=== PATIENT | male | born 1970 | race Caucasian/White ===

== ENCOUNTER 2016-05-14 16:30 | Inpatient (IN) | payer SELFPAY ==
[~2016-05-14] VITALS: Ht 185.4 cm; Wt 162.4 kg
[~2016-05-14 16:30] MED LIST: Atorvastatin PO; FURO80TA72 PO; GABA-585 PO; HYDR12.53 PO; INSU100I13 SQ; INSU100I17 SQ; INSU100I27 SQ; LISI-338 PO; METF500T4 PO; NYST30PO9 TP
[2016-05-14] MEDS ORDERED: IV NORMAL SALINE 1000ML BAG 1,000 ML IV SCH ×2 (16:57→17:32)
--- NOTE | 2016-05-14 17:07 | ED.ADGEN ---
Past Medical History Past Medical History: Cancer, Diabetes-Type II, High Cholesterol, Hypertension Additional Past Medical Histor: Renal cancer 06/2012 - refused chemotherapy and radiation. Past Surgical History: Appendectomy, Cholecystectomy, Other Additional Past Surgical Histo: Left Nephrectomy Alcohol Use: None Drug Use: None Adult General Chief Complaint Chief Complaint: HYPERGLYCEMIA HPI HPI Patient is a 46 year old and, history of type 2 diabetes mellitus, hypertension , obesity, renal cell carcinoma was diagnosed in 2012 for which he did not receive treatment, who presents to the emergency department with complaint of feeling tired, lethargy, dry mouth, nauseous, experiencing diarrhea that began today, and of "high" blood sugars at home after running out of his insulin approximately 5 days ago. Patient states that he feels as he usually does when he is in DKA. He states he does not currently have a doctor, states that he attempted to go to the pharmacy to get insulin and was told that he had used "more than $1500 already", and he was unable to obtain insulin at that point. He does not have insurance. Patient denies any chest pain or shortness of breath , denies any focal weakness numbness or tingling, any vision changes. He states he feels weak all over, fatigue, nausea, has not had any vomiting, no fevers or chills, has had multiple episodes of loose brown stool that began this morning, no sick contacts or exposures. Denies any blood in stool. States he had frequency of urine today, no dysuria. Denies any injuries. No swelling of the extremities. Patient's Accu-Chek upon arrival to the emergency department registers as too high to be determined. Dry mucous membranes as stated, mild sinus tachycardia in the low 100s. Speech noted to be slightly slurred, patient states that dry mouth is contributing. Review of Systems Review of Systems Constitutional: Denies fever or chills. [] Generalized weakness and malaise. Eyes: Denies change in visual acuity. [] HENT: Denies nasal congestion or sore throat. [] Respiratory: Denies cough or shortness of breath. [] Cardiovascular: Denies chest pain or edema. [] GI: Abdominal cramping, nausea, no vomiting, positive for diarrhea, no bloody stools. : Denies dysuria. Frequency. Musculoskeletal: Denies back pain or joint pain. [] Integument: Denies rash. [] Neurologic: Denies headache, focal weakness or sensory changes. [] Endocrine: Denies polyuria or polydipsia. [] Lymphatic: Denies swollen glands. [] Psychiatric: Denies depression or anxiety. [] Current Medications Current Medications Current Medications Medications (Trade) Dose Ordered Sig/Mario Start Time Stop Time Status Last Admin Dose Admin Dextrose/Sodium Chloride 1,000 ml @ 250 mls/hr Q4H 05/14/16 17:32 05/14/16 18:24 DC Insulin Human Regular 150 unit/ Sodium Chloride 151.5 ml @ 0 mls/hr CONT PRN PRN 05/14/16 17:30 05/14/16 18:24 DC Potassium Chloride (KCl Premix 10meq) 100 ml @ 100 mls/hr PRN Q1HR PRN 05/14/16 17:30 05/14/16 18:24 DC Sodium Chloride 1,000 ml @ 250 mls/hr Q4H 05/14/16 17:32 05/14/16 18:24 DC Allergies Allergies Allergies Coded Allergies Type Severity Reaction Last Updated Verified Iodinated Contrast Media - IV Dye Allergy Intermediate 04/06/15 Yes meperidine HCl Allergy Intermediate 04/06/15 Yes Physical Exam Physical Exam Constitutional: Well developed, well nourished, dry mucous membranes, no acute distress, ill in appearance. HENT: Normocephalic, atraumatic, bilateral external ears normal, oropharynx moist, no oral exudates, nose normal. [] Eyes: PERRLA, EOMI, conjunctiva normal, no discharge. [] Neck: Normal range of motion, no tenderness, supple, no stridor. [] Cardiovascular:Heart rate regular rhythm, no murmur, S1, S2, no rubs or gallops. Mildly tachycardic. [] Lungs & Thorax: Bilateral breath sounds clear to auscultation, no wheezing, rhonchi, rales. No chest or crepitus or tenderness. [] Abdomen: Bowel sounds normal, soft, mild initial palpation diffusely, no rebound , rigidity, no guarding, no masses, no pulsatile masses. [] Skin: Warm, dry, no erythema, no rash. [] Back: No tenderness, no CVA tenderness. [] Extremities: No tenderness, no cyanosis, no clubbing, ROM intact, no edema. Negative Homans sign. Neurologic: Alert and oriented X 3, normal motor function, normal sensory function, patient is slightly slow to respond at times, with mildly slurred speech, no difficulty with finding words. Psychologic: Affect normal, judgement normal, mood normal. [] Current Patient Data Vital Signs Vital Signs Date Time Temp Pulse Resp B/P Pulse Ox O2 Delivery O2 Flow Rate FiO2 05/14/16 17:40 104 24 114/68 95 Room Air 05/14/16 16:32 97.8 97.8 Lab Values Laboratory Tests Test 05/14/16 16:52 05/14/16 17:00 Urine Color Yellow Urine Clarity Clear Urine pH 5.5 Urine Specific [place] >=1.030 Urine Protein Negativemg/dL (NEG-TRACE) Urine Glucose (UA) >=1000mg/dL (NEG) Urine Ketones (Stick) Tracemg/dL (NEG) Urine Blood Negative (NEG) Urine Nitrite Negative (NEG) Urine Bilirubin Negative (NEG) Urine Urobilinogen Dipstick 0.2mg/dL (0.2 mg/dL) Urine Leukocyte Esterase Negative (NEG) Urine RBC Rare/HPF (0-2) Urine WBC 1-4/HPF (0-4) Urine Squamous Epithelial Cells Occ/LPF Urine Bacteria 0/HPF (0-FEW) White Blood Count 10.8x10^3/uL (4.0-11.0) Red Blood Count 5.80x10^6/uL (4.30-5.70) H Hemoglobin 17.0g/dL (13.0-17.5) Hematocrit 50.0% (39.0-53.0) Mean Corpuscular Volume 86fL (79-100) Mean Corpuscular Hemoglobin 29pg (25-35) Mean Corpuscular Hemoglobin Concent 34g/dL (31-37) Red Cell Distribution Width 13.7% (11.5-14.5) Platelet Count 314x10^3/uL (140-400) Neutrophils (%) (Auto) 72% (31-73) Lymphocytes (%) (Auto) 19% (24-48) L Monocytes (%) (Auto) 7% (0-9) Eosinophils (%) (Auto) 1% (0-3) Basophils (%) (Auto) 1% (0-3) Neutrophils # (Auto) 7.7x10^3uL (1.8-7.7) Lymphocytes # (Auto) 2.1x10^3/uL (1.0-4.8) Monocytes # (Auto) 0.7x10^3/uL (0.0-1.1) Eosinophils # (Auto) 0.2x10^3/uL (0.0-0.7) Basophils # (Auto) 0.1x10^3/uL (0.0-0.2) Sodium Level 121mmol/L (136-145) L Potassium Level 4.5mmol/L (3.5-5.1) Chloride Level 83mmol/L (98-107) L Carbon Dioxide Level 25mmol/L (21-32) Anion Gap 13 (6-14) Blood Urea Nitrogen 20mg/dL (8-26) Creatinine 1.6mg/dL (0.7-1.3) H Estimated GFR (Cockcroft-Gault) 46.8 BUN/Creatinine Ratio 13 (6-20) Glucose Level 954mg/dL (70-99) *H Calcium Level 9.9mg/dL (8.5-10.1) Phosphorus Level 3.3mg/dL (2.6-4.7) Magnesium Level 2.0mg/dL (1.8-2.4) Total Bilirubin 0.6mg/dL (0.2-1.0) Aspartate Amino Transferase (AST) 48U/L (15-37) H Alanine Aminotransferase (ALT) 66U/L (16-63) H Alkaline Phosphatase 123U/L (46-116) H Total Protein 7.9g/dL (6.4-8.2) Albumin 3.3g/dL (3.4-5.0) L Albumin/Globulin Ratio 0.7 (1.0-1.7) L Laboratory Tests 05/14/16 17:00 Laboratory Tests 05/14/16 17:00 EKG EKG EC: Sinus tachycardia, heart rate 108 bpm, left axis deviation, QTC of 459, HI of 170, QRS of 80, Q waves noted in leads 3, with contour normality is noted in aVF, possible previous infarct, no ST depressions identified, patient with contour abnormalities noted in the anterior septal leads, abnormal ECG, does not meet STEMI criteria. As interpreted by me. Radiology/Procedures Radiology/Procedures [] [facility] [address] [place], [place] [id number] IMAGING REPORT Signed PATIENT: PATRICIO VEGA ACCOUNT: [id number] : 1970 LOCATION: [facility] AGE: 46 SEX: M EXAM STATUS: ADM IN ORD. PHYSICIAN: YANETH SPEAR DO REASON: PRATER/weakness/slurred speech/Hyperglcemia PROCEDURE: HEAD WO CONTRAST PROCEDURE CT head without intravenous contrast. HISTORY Headache and weakness. Slurred speech. TECHNIQUE Axial images are obtained of the head from the skull base through the vertex without IV contrast Exposure: One or more of the following individualized dose reduction techniques were utilized for this examination: 1. Automated exposure control. 2. Adjustment of the mA and/or kV according to patient size. 3. Use of iterative reconstruction technique. COMPARISON CT head October 28, 2001. FINDINGS The ventricles are appropriate in size, shape, and location for the patient's age.No obvious intracranial mass, mass-effect, midline shift, hemorrhage or obvious acute infarction is identified.Basilar cisterns are patent. Bone windows demonstrate no acute calvarial abnormality.The visualized paranasal sinuses appear clear. IMPRESSION No acute intracranial process. Please note that CT can be relatively insensitive to acute ischemic infarction for up to 24 hours after symptom onset. Electronically signed by: Vahe Mora MD (May 14, 2016 18:38:58) DICTATED and SIGNED BY: VAHE MORA MD DATE: 05/14/16 183 CC: YANETH SPEAR DO; NO PCP; DANIELLE BLACKWOOD MD ~ Acute abdominal series: 3 view: Suboptimal respiratory effort, but no infiltrates, effusions, pneumothorax or effusions noted. No soft tissue or bony abnormalities identified, normal cardiac lip. Patient with possibly of gas noted in the bowel, but no air-fluid levels or obvious evidence of obstruction or other abnormality. As interpreted by me. Course & Med Decision Making Course & Med Decision Making Pertinent Labs and Imaging studies reviewed. (See chart for details) Patient's blood glucose is 954, trace ketones in the urine, but no anion gap or evidence of acidosis on his laboratory studies. As stated, patient with very mild slurred speech, which patient states is consistent with previous episodes of DKA, CT of the head obtained, no acute findings identified, examination is otherwise unremarkable, I do not believe is indicative of a CVA, symptoms are consistent with his hyperglycemia. Patient taking by mouth fluids without issue , along with IV fluids. Due to patient's complaints, speech changes, and elevated glucose, will admit to the ICU for close monitoring, after discussion with Dr. Blackwood. Insulin drip initiated in the ED without issue, will continue to adjust per glucose stabilizing. Patient with IV fluids initiated per the DKA protocol. Patient is agreeable with plan for addition of the hospital for treatment. Address with patient that continued to occur as long as he is not adhering to an insulin regimen, discussed with patient and family at bedside again the importance of establishing insurance, primary care provider, and an insulin regimen to prevent long-term serious health effects from his uncontrolled diabetes. Patient voiced understanding. No vomiting or diarrhea in the emergency department, which treatment as stated. Bridge orders entered per discussion. Dragon Disclaimer Dragon Disclaimer This electronic medical record was generated, in whole or in part, using a voice recognition dictation system. Departure Impression: Primary Impression: Hyperglycemia Disposition: ADMITTED INPATIENT Admitting Physician: Danielle Blackwood Condition: IMPROVED YANETH SPEAR DO May 14, 2016 17:07
[2016-05-14 17:14] LABS: BILIRUBIN,URINE NEGATIVE (NEG); GLUCOSE,URINE >=1000 mg/dL (NEG); NITRITE,URINE NEGATIVE (NEG); PH,URINE 5.5; PROTEIN,URINE NEGATIVE (NEG-TRACE); UROBILINOGEN,URINE 0.2 mg/dL (0.2 mg/dL)
[2016-05-14 17:16] LABS: BASO # 0.1 x10^3/uL (0.0-0.2); BASO % 1 % (0-3); EOS % 1 % (0-3); LYMPH # 2.1 x10^3/uL (1.0-4.8); LYMPH % 19 % (24-48); MEAN CORPUSCULAR HEMOGLOBIN 29 pg (25-35); MEAN CORPUSCULAR HGB CONC 34 g/dL (31-37); MEAN CORPUSCULAR VOLUME 86 fL (79-100); MONO % 7 % (0-9); NEUT % 72 % (31-73); PLATELET COUNT 314 x10^3/uL (140-400); RED CELL DISTRIBUTION WIDTH 13.7 % (11.5-14.5); WHITE BLOOD COUNT 10.8 x10^3/uL (4.0-11.0)
[2016-05-14 17:21] LABS: BACTERIA,URINE 0 /HPF (0-FEW); RBC,URINE RARE /HPF (0-2); SQUAMOUS EPITHELIAL CELL,UR OCC /LPF
[2016-05-14] MEDS ORDERED: INSULIN REGULAR VIAL 150 UNIT in 0.9 % SODIUM CHLORIDE 150ML 150 ML IV PRN (17:30)
[2016-05-14] MEDS ORDERED: IV 1/2 NORMAL SALINE 1,000 ML IV SCH (17:30)
[2016-05-14] MEDS ORDERED: POTASSIUM CHLORIDE 10MEQ 100 ML IV PRN ×3 (17:30)
[2016-05-14 17:31] LABS: CALCIUM 9.9 mg/dL (8.5-10.1); CREATININE 1.6 mg/dL (0.7-1.3); GFR 46.8; POTASSIUM 4.5 mmol/L (3.5-5.1)
[2016-05-14] MEDS ORDERED: IV DEXTROSE 5 %-0.45 % NACL 1,000 ML IV SCH (17:32)
[2016-05-14 17:33] LABS: ALBUMIN 3.3 g/dL (3.4-5.0); ALBUMIN/GLOBULIN RATIO 0.7 (1.0-1.7); PHOSPHORUS 3.3 mg/dL (2.6-4.7); TOTAL BILIRUBIN 0.6 mg/dL (0.2-1.0); TOTAL PROTEIN 7.9 g/dL (6.4-8.2)
[2016-05-14] MEDS ORDERED: IV NORMAL SALINE 1000ML BAG 1,000 ML IV ONE (18:00)
[2016-05-14] MEDS ORDERED: INSULIN,REGULAR 150 UNIT DRIP 150 ML IV ONE (18:00)
[2016-05-14] MEDS ORDERED: ACETAMINOPHEN 325 MG TABLET. PO PRN (18:30)
[2016-05-14] MEDS ORDERED: ONDANSETRON PF 4 MG/2 ML VIAL. IV PRN ×2 (18:30→18:59)
--- NOTE | 2016-05-14 18:40 | RAD ---
PROCEDURE CT head without intravenous contrast. HISTORY Headache and weakness. Slurred speech. TECHNIQUE Axial images are obtained of the head from the skull base through the vertex without IV contrast Exposure: One or more of the following individualized dose reduction techniques were utilized for this examination: 1. Automated exposure control. 2. Adjustment of the mA and/or kV according to patient size. 3. Use of iterative reconstruction technique. COMPARISON CT head October 28, 2001. FINDINGS The ventricles are appropriate in size, shape, and location for the patient's age.No obvious intracranial mass, mass-effect, midline shift, hemorrhage or obvious acute infarction is identified.Basilar cisterns are patent. Bone windows demonstrate no acute calvarial abnormality.The visualized paranasal sinuses appear clear. IMPRESSION No acute intracranial process. Please note that CT can be relatively insensitive to acute ischemic infarction for up to 24 hours after symptom onset. Electronically signed by: Vahe Jimenes MD (May 14, 2016 18:38:58)
[2016-05-14] MEDS: IV NORMAL SALINE 1000ML BAG 1,000 ML IV SCH (19:00)
[2016-05-14 19:05] VITALS: BP 118/72
[2016-05-14 19:45] LABS: BARBITURATES NEG (NEG); BENZODIAZEPINES NEG (NEG); CANNABINOIDS NEG (NEG); COCAINE NEG (NEG); METHADONE NEG (NEG); OPIATES NEG (NEG); PHENCYCLIDINE NEG (NEG)
[2016-05-14 19:48] LABS: ETHANOL, URINE NEG (NEG)
--- NOTE | 2016-05-14 19:52 | PDOC1 ---
History and Physical Date of Admission Date of Admission DATE: 05/14/16 TIME: 19:43 Identification/Chief Complaint Chief Complaint slurred speech Source Source: Caregiver, Chart review, Patient History of Present Illness History of Present Illness 46 y.o obese male who was diagnosed DM type 2 just 2-3 yrs ago, but unfortunately has had multiple admits for HONK, He is admitted for the same with BS almost 1,000 at ER. HIS hgba1c is 17 he claims last Jan 2016 - his last admission here. HE practically HAS NO sensation in his feet he claims. Blurry vision too. He has no insurance so has not been taking insulin for the past weeks or maybe mos, HE is supposed to be on levemir 100 BID and novolog 100 TID with meals. Never was introduced to insulin pump or has seen tractor engine assembler bec of financial constraints UA shwos glucosuria and ketones but no infection Bicarb is 23 and gap is only 13 ALthough his speech is slurred, he is actually able to relay to me his meds including lisinopril, metformin, his insulin dose. He is not usually slurred as per hygiene assistant, His CT ehad is normal HONK can very much well be a stroke mimic, given THIS VERY HIGH BS LEVELS DID heavy counselling on DM and controlling it, including discussing coma in severe cases Past Medical History Cardiovascular: HTN Pulmonary: Other CENTRAL NERVOUS SYSTEM: Periperal neuropathy GI: No pertinent hx Heme/Onc: No pertinent hx, Cancer Hepatobiliary: No pertinent hx Psych: No pertinent hx Renal/: Renal Ca. Endocrine: Diabetes Past Surgical History Past Surgical History: Cholecystectomy, Hernia Repair, Tonsillectomy, Other Family History Family History: No Significant Social History Smoke: No ALCOHOL: none Drugs: None Current Problem List Problem List Problems Medical Problems: (1) Hyperglycemia Status: Acute Problems: Current Medications Current Medications Current Medications Sodium Chloride 1,000 ml @ 1,000 mls/hr Q1H IV Last administered on 05/14/16t 17:07; Start 05/14/16 at 16:57; Stop 05/14/16 at 17:56; Status DC Sodium Chloride 1,000 ml @ 500 mls/hr Q2H IV ; Start 05/14/16 at 17:30; Stop at 18:24; Status DC Sodium Chloride 1,000 ml @ 250 mls/hr Q4H IV ; Start 05/14/16 at 17:32; Stop at 18:24; Status DC Dextrose/Sodium Chloride 1,000 ml @ 250 mls/hr Q4H IV ; Start 05/14/16 at 17:32 ; Stop 05/14/16 at 18:24; Status DC Insulin Human Regular 150 unit/ Sodium Chloride 151.5 ml @ 0 mls/hr CONT PRN PRN IV PER PROTOCOL; Start 05/14/16 at 17:30; Stop 05/14/16 at 18:24; Status DC Potassium Chloride 100 ml @ 100 mls/hr PRN Q1HR PRN IV SEE COMMENTS; Start at 17:30; Stop 05/14/16 at 18:24; Status DC Potassium Chloride 100 ml @ 100 mls/hr PRN Q1HR PRN IV SEE COMMENTS; Start at 17:30; Stop 05/14/16 at 18:24; Status DC Potassium Chloride 100 ml @ 100 mls/hr PRN Q1HR PRN IV SEE COMMENTS; Start at 17:30; Stop 05/14/16 at 18:24; Status DC Sodium Chloride 1,000 ml @ 1,000 mls/hr 1X ONCE IV Last administered on t 18:32; Start 05/14/16 at 18:00; Stop 05/14/16 at 18:59; Status DC Insulin Human Regular (Novolin R Iv Drip) 150 ml @ 0 mls/hr 1X ONCE IV Last administered on 05/14/16t 18:08; Start 05/14/16 at 18:00; Stop 05/14/16 at 18:01 ; Status DC Ondansetron HCl (Zofran) 4 mg PRN Q8HRS PRN IV NAUSEA/VOMITING; Start 05/14/16 at 18:30; Stop 05/14/16 at 19:01; Status DC Acetaminophen (Tylenol) 650 mg PRN Q4HRS PRN PO FEVER; Start 05/14/16 at 18:30 ; Stop 05/15/16 at 18:29 Ondansetron HCl 4 mg 4 mg PRN Q6HRS PRN IV NAUSEA/VOMITING; Start 05/14/16 at 18:59 Sodium Chloride (Iv Sodium Chloride 0.9% 1000ml Bag) 1,000 ml @ 150 mls/hr Q6H40M IV ; Start 05/14/16 at 19:00 Gabapentin (Neurontin) 800 mg TID PO ; Start 05/14/16 at 21:00 Nystatin (Nystop) 1 martha BID TP ; Start 05/14/16 at 21:00 Atorvastatin Calcium (Lipitor) 20 mg QHS PO ; Start 05/14/16 at 21:00 Gabapentin (Neurontin) 200 mg TID PO ; Start 05/14/16 at 21:00 Active Scripts Active Levemir Flextouch (Insulin Detemir) 100 Unit/1 Ml Insuln.pen 120 Units SQ BID 30 Days Novolog Flexpen (Insulin Aspart) 100 Unit/1 Ml Insuln.pen 60 Units SQ TIDAC 30 Days Reported Lisinopril 5 Mg Tablet 1 Tab PO DAILY Lasix (Furosemide) 80 Mg Tablet 1 Tab PO DAILY [Atorvastatin] 25 Mg PO DAILY Gabapentin 100 Mg Capsule 1,000 Mg PO TID Metformin Hcl 500 Mg Tablet 2 Tab PO HS Metformin Hcl 500 Mg Tablet 2 Tab PO DAILY08 Nystatin 15 Gm Powder 1 Martha TP BID Allergies Allergies: Coded Allergies: Iodinated Contrast Media - IV Dye (Verified Allergy, Intermediate, 04/06/15 ) meperidine HCl (Verified Allergy, Intermediate, 04/06/15) ROS Review of System slurred speech,weak, Physical Exam General: Oriented X3, Cooperative, Other (slurred speech) HEENT: Atraumatic, PERRLA Lungs: Clear to auscultation, Normal air movement Heart: S1S2, RRR, no thrills, no rubs, other (sinus tachy) Abdomen: Normal bowel sounds, Soft, No tenderness, No hepatosplenomegaly, No masses Male Genitals Exam: normal genitalia, normal prostate Rectal Exam: not examined, mass PELVIC: Nml ext genitalia, Nml ext vulva Extremities: No clubbing, No cyanosis, No edema, Normal pulses, No tenderness/ swelling Skin: No rashes, No breakdown, No significant lesion Neuro: Other (no FNDs, no facial assympettry; MMT 5.5) Vitals Vitals Vital Signs Date Time Temp Pulse Resp B/P Pulse Ox O2 Delivery O2 Flow Rate FiO2 05/14/16 18:33 94 20 161/96 98 Room Air 05/14/16 16:32 97.8 97.8 Labs Labs Laboratory Tests Test 05/14/16 16:52 05/14/16 17:00 Urine Color Yellow Urine Clarity Clear Urine pH 5.5 Urine Specific [place] >=1.030 Urine Protein Negativemg/dL (NEG-TRACE) Urine Glucose (UA) >=1000mg/dL (NEG) Urine Ketones (Stick) Tracemg/dL (NEG) Urine Blood Negative (NEG) Urine Nitrite Negative (NEG) Urine Bilirubin Negative (NEG) Urine Urobilinogen Dipstick 0.2mg/dL (0.2 mg/dL) Urine Leukocyte Esterase Negative (NEG) Urine RBC Rare/HPF (0-2) Urine WBC 1-4/HPF (0-4) Urine Squamous Epithelial Cells Occ/LPF Urine Bacteria 0/HPF (0-FEW) White Blood Count 10.8x10^3/uL (4.0-11.0) Red Blood Count 5.80x10^6/uL (4.30-5.70) Hemoglobin 17.0g/dL (13.0-17.5) Hematocrit 50.0% (39.0-53.0) Mean Corpuscular Volume 86fL (79-100) Mean Corpuscular Hemoglobin 29pg (25-35) Mean Corpuscular Hemoglobin Concent 34g/dL (31-37) Red Cell Distribution Width 13.7% (11.5-14.5) Platelet Count 314x10^3/uL (140-400) Neutrophils (%) (Auto) 72% (31-73) Lymphocytes (%) (Auto) 19% (24-48) Monocytes (%) (Auto) 7% (0-9) Eosinophils (%) (Auto) 1% (0-3) Basophils (%) (Auto) 1% (0-3) Neutrophils # (Auto) 7.7x10^3uL (1.8-7.7) Lymphocytes # (Auto) 2.1x10^3/uL (1.0-4.8) Monocytes # (Auto) 0.7x10^3/uL (0.0-1.1) Eosinophils # (Auto) 0.2x10^3/uL (0.0-0.7) Basophils # (Auto) 0.1x10^3/uL (0.0-0.2) Sodium Level 121mmol/L (136-145) Potassium Level 4.5mmol/L (3.5-5.1) Chloride Level 83mmol/L (98-107) Carbon Dioxide Level 25mmol/L (21-32) Anion Gap 13 (6-14) Blood Urea Nitrogen 20mg/dL (8-26) Creatinine 1.6mg/dL (0.7-1.3) Estimated GFR (Cockcroft-Gault) 46.8 BUN/Creatinine Ratio 13 (6-20) Glucose Level 954mg/dL (70-99) Calcium Level 9.9mg/dL (8.5-10.1) Phosphorus Level 3.3mg/dL (2.6-4.7) Magnesium Level 2.0mg/dL (1.8-2.4) Total Bilirubin 0.6mg/dL (0.2-1.0) Aspartate Amino Transf (AST/SGOT) 48U/L (15-37) Alanine Aminotransferase (ALT/SGPT) 66U/L (16-63) Alkaline Phosphatase 123U/L (46-116) Total Protein 7.9g/dL (6.4-8.2) Albumin 3.3g/dL (3.4-5.0) Albumin/Globulin Ratio 0.7 (1.0-1.7) Laboratory Tests Test 05/14/16 16:52 05/14/16 17:00 Urine Color Yellow Urine Clarity Clear Urine pH 5.5 Urine Specific [place] >=1.030 Urine Protein Negativemg/dL (NEG-TRACE) Urine Glucose (UA) >=1000mg/dL (NEG) Urine Ketones (Stick) Tracemg/dL (NEG) Urine Blood Negative (NEG) Urine Nitrite Negative (NEG) Urine Bilirubin Negative (NEG) Urine Urobilinogen Dipstick 0.2mg/dL (0.2 mg/dL) Urine Leukocyte Esterase Negative (NEG) Urine RBC Rare/HPF (0-2) Urine WBC 1-4/HPF (0-4) Urine Squamous Epithelial Cells Occ/LPF Urine Bacteria 0/HPF (0-FEW) White Blood Count 10.8x10^3/uL (4.0-11.0) Red Blood Count 5.80x10^6/uL (4.30-5.70) Hemoglobin 17.0g/dL (13.0-17.5) Hematocrit 50.0% (39.0-53.0) Mean Corpuscular Volume 86fL (79-100) Mean Corpuscular Hemoglobin 29pg (25-35) Mean Corpuscular Hemoglobin Concent 34g/dL (31-37) Red Cell Distribution Width 13.7% (11.5-14.5) Platelet Count 314x10^3/uL (140-400) Neutrophils (%) (Auto) 72% (31-73) Lymphocytes (%) (Auto) 19% (24-48) Monocytes (%) (Auto) 7% (0-9) Eosinophils (%) (Auto) 1% (0-3) Basophils (%) (Auto) 1% (0-3) Neutrophils # (Auto) 7.7x10^3uL (1.8-7.7) Lymphocytes # (Auto) 2.1x10^3/uL (1.0-4.8) Monocytes # (Auto) 0.7x10^3/uL (0.0-1.1) Eosinophils # (Auto) 0.2x10^3/uL (0.0-0.7) Basophils # (Auto) 0.1x10^3/uL (0.0-0.2) Sodium Level 121mmol/L (136-145) Potassium Level 4.5mmol/L (3.5-5.1) Chloride Level 83mmol/L (98-107) Carbon Dioxide Level 25mmol/L (21-32) Anion Gap 13 (6-14) Blood Urea Nitrogen 20mg/dL (8-26) Creatinine 1.6mg/dL (0.7-1.3) Estimated GFR (Cockcroft-Gault) 46.8 BUN/Creatinine Ratio 13 (6-20) Glucose Level 954mg/dL (70-99) Calcium Level 9.9mg/dL (8.5-10.1) Phosphorus Level 3.3mg/dL (2.6-4.7) Magnesium Level 2.0mg/dL (1.8-2.4) Total Bilirubin 0.6mg/dL (0.2-1.0) Aspartate Amino Transf (AST/SGOT) 48U/L (15-37) Alanine Aminotransferase (ALT/SGPT) 66U/L (16-63) Alkaline Phosphatase 123U/L (46-116) Total Protein 7.9g/dL (6.4-8.2) Albumin 3.3g/dL (3.4-5.0) Albumin/Globulin Ratio 0.7 (1.0-1.7) VTE Prophylaxis Ordered VTE Prophylaxis Devices: Yes VTE Pharmacological Prophylaxi: Yes Assessment/Plan Assessment/Plan 1. HONK 2. Slurred speech in the background of HONK (can be a stroke mimic) 3. Mild Gap, no acidosis 4. Glucosuria and ketonuria 5. Obesity with mild PCM 6. PSeudohyponatremia 7. HTN on damian inhib 8. MELINDA 9.Hypochloremia 10. Elevated Alk phosp 11. DM 2 with end organ damage mainly neuropathy both feet PLAN: INSulin gtt ICU admit given severity of HONK Start IVF 150cc.hr BMP again alex AM ADA diet, is ok Hold damian inhib and metformin given creatinine Needs podiatry for monofilament testing Recheck hemoglobin a1c Also needs ophtha ideally DM education CC 31mins Seen at ER Dw pt and hygiene assistant and ER TESSIE Kaur MD May 14, 2016 19:52
[2016-05-14 20:00] VITALS: BP 117/73
[2016-05-14 20:28] LABS: CALCIUM 9.3 mg/dL (8.5-10.1); CREATININE 1.3 mg/dL (0.7-1.3); GFR 59.4; POTASSIUM 3.4 mmol/L (3.5-5.1)
[2016-05-14 21:00] VITALS: BP 118/77
[2016-05-14] MEDS: GABAPENTIN 100 MG CAPSULE. PO SCH (21:07)
[2016-05-14] MEDS: ATORVASTATIN CALCIUM 20 MG TABLET PO SCH (21:07)
[2016-05-14] MEDS: GABAPENTIN 400 MG CAPSULE. PO SCH (21:07)
[2016-05-14] MEDS: NYSTATIN TOPICAL POWDER 15GM BOTTLE. TP SCH (21:07)
[2016-05-14 22:00] VITALS: BP 115/59
[2016-05-14 23:00] VITALS: BP 108/51
[2016-05-15] VITALS (18 sets, daily range): BP systolic 93–134; BP diastolic 42–86
[2016-05-15] MEDS ORDERED: INSULIN REGULAR VIAL 150 UNIT in 0.9 % SODIUM CHLORIDE 150ML 150 ML IV PRN (00:45)
[2016-05-15] MEDS: IV NORMAL SALINE 1000ML BAG 1,000 ML IV SCH ×3 (01:40→15:00)
[2016-05-15 05:07] LABS: BASO # 0.2 x10^3/uL (0.0-0.2); BASO % 3 % (0-3); EOS % 5 % (0-3); HEMATOCRIT 43.7 % (39.0-53.0); HEMOGLOBIN 15.1 g/dL (13.0-17.5); LYMPH # 2.6 x10^3/uL (1.0-4.8); LYMPH % 37 % (24-48); MEAN CORPUSCULAR HEMOGLOBIN 29 pg (25-35); MEAN CORPUSCULAR HGB CONC 34 g/dL (31-37); MEAN CORPUSCULAR VOLUME 83 fL (79-100); MONO % 9 % (0-9); NEUT % 47 % (31-73); PLATELET COUNT 243 x10^3/uL (140-400); RED BLOOD COUNT 5.24 x10^6/uL (4.30-5.70); RED CELL DISTRIBUTION WIDTH 13.8 % (11.5-14.5)
[2016-05-15 05:21] LABS: CALCIUM 9.3 mg/dL (8.5-10.1); CREATININE 0.9 mg/dL (0.7-1.3); GFR 90.8
[2016-05-15 05:32] LABS: POTASSIUM 2.8 mmol/L (3.5-5.1)
--- NOTE | 2016-05-15 06:17 | EKG ---
[facility] [address] [place] [address] Test Date: 2016-05-14 Test Time: 17:06:09 Pat Name: PATRICIO VEGA Department: Room: 270 1 Gender: M [employer]: AMANDO : 1970 Requested By: YANETH SPEAR Order Number: [id number] Reading MD: Erica Lares Measurements Intervals [place] Rate: 108 P: 18 OR: 170 QRS: -11 QRSD: 80 T: 28 QT: 340 QTc: 459 Interpretive Statements SINUS TACHYCARDIA LEFTWARD AXIS QRS(T) CONTOUR ABNORMALITY CONSIDER ANTEROSEPTAL MYOCARDIAL DAMAGE PROBABLY OLD ABNORMAL ECG Electronically Signed On 05-15-2016 19:50:13 CDT by Erica Lares
[2016-05-15] MEDS ORDERED: POTASSIUM CHLORIDE 20 MEQ TABLET.ER. PO ONE (06:30)
--- NOTE | 2016-05-15 07:29 | RAD ---
Acute abdomen series with chest, 05/14/2016: History: Cough, abdominal pain There is a paucity of bowel gas in the abdomen. No dilated bowel loops are seen. No free air is evident in the abdomen. There are surgical clips in the abdomen and upper pelvis. No abnormal abdominal calcifications are delineated. The heart size is normal. No pulmonary infiltrates are seen. There is no evidence of pleural fluid. IMPRESSION: No acute abdominal abnormality is detected.
[2016-05-15] MEDS: NYSTATIN TOPICAL POWDER 15GM BOTTLE. TP SCH ×2 (08:19→20:55)
[2016-05-15] MEDS: GABAPENTIN 100 MG CAPSULE. PO SCH ×3 (08:19→20:54)
[2016-05-15] MEDS: GABAPENTIN 400 MG CAPSULE. PO SCH ×3 (08:19→20:54)
[2016-05-15] MEDS: INSULIN DETEMIR 300 UNITS/3 ML INSULN.PEN. SQ SCH ×2 (10:34→21:01)
--- NOTE | 2016-05-15 10:45 | PDOC ---
PROGRESS NOTES Chief Complaint Chief Complaint DKA ASSESSMENT AND PLAN: 1. DKA: resolved. switch insulin gtt to long- and short-acting insulin regimen 2. DM2.: by own account, poorly controlled at home. unemployed, can't afford insulin pens. 3. Dysarthria: states happens when BG high 4. Diabetic peripheral neuropathy: currently can't afford meds 5. Renal protection: on lisinopril 6. Prophylaxis: lovenox, H2B 7. Dispo: transfer to floor Vitals Vitals Vital Signs Date Time Temp Pulse Resp B/P Pulse Ox O2 Delivery O2 Flow Rate FiO2 05/15/16 10:00 81 17 122/71 97 Room Air 05/15/16 08:00 97.5 97.5 Physical Exam General: Alert, Oriented X3, Cooperative Heart: Regular rate Lungs: Clear Abdomen: Normal bowel sounds, Soft, No tenderness Extremities: No clubbing, No edema Skin: No rashes Labs LABS Laboratory Tests Test 05/14/16 16:50 05/14/16 16:52 05/14/16 17:00 05/14/16 20:05 Urine Opiates Screen Neg (NEG) Urine Methadone Screen Neg (NEG) Urine Barbiturates Neg (NEG) Urine Phencyclidine Screen Neg (NEG) Urine Amphetamine/Methamphetamine Neg (NEG) Urine Benzodiazepines Screen Neg (NEG) Urine Cocaine Screen Neg (NEG) Urine Cannabinoids Screen Neg (NEG) Urine Ethyl Alcohol Neg (NEG) Urine Color Yellow Urine Clarity Clear Urine pH 5.5 Urine Specific Hindman >=1.030 Urine Protein Negativemg/dL (NEG-TRACE) Urine Glucose (UA) >=1000mg/dL (NEG) Urine Ketones (Stick) Tracemg/dL (NEG) Urine Blood Negative (NEG) Urine Nitrite Negative (NEG) Urine Bilirubin Negative (NEG) Urine Urobilinogen Dipstick 0.2mg/dL (0.2 mg/dL) Urine Leukocyte Esterase Negative (NEG) Urine RBC Rare/HPF (0-2) Urine WBC 1-4/HPF (0-4) Urine Squamous Epithelial Cells Occ/LPF Urine Bacteria 0/HPF (0-FEW) White Blood Count 10.8x10^3/uL (4.0-11.0) Red Blood Count 5.80x10^6/uL (4.30-5.70) Hemoglobin 17.0g/dL (13.0-17.5) Hematocrit 50.0% (39.0-53.0) Mean Corpuscular Volume 86fL (79-100) Mean Corpuscular Hemoglobin 29pg (25-35) Mean Corpuscular Hemoglobin Concent 34g/dL (31-37) Red Cell Distribution Width 13.7% (11.5-14.5) Platelet Count 314x10^3/uL (140-400) Neutrophils (%) (Auto) 72% (31-73) Lymphocytes (%) (Auto) 19% (24-48) Monocytes (%) (Auto) 7% (0-9) Eosinophils (%) (Auto) 1% (0-3) Basophils (%) (Auto) 1% (0-3) Neutrophils # (Auto) 7.7x10^3uL (1.8-7.7) Lymphocytes # (Auto) 2.1x10^3/uL (1.0-4.8) Monocytes # (Auto) 0.7x10^3/uL (0.0-1.1) Eosinophils # (Auto) 0.2x10^3/uL (0.0-0.7) Basophils # (Auto) 0.1x10^3/uL (0.0-0.2) Sodium Level 121mmol/L (136-145) 133mmol/L (136-145) Potassium Level 4.5mmol/L (3.5-5.1) 3.4mmol/L (3.5-5.1) Chloride Level 83mmol/L (98-107) 96mmol/L (98-107) Carbon Dioxide Level 25mmol/L (21-32) 27mmol/L (21-32) Anion Gap 13 (6-14) 10 (6-14) Blood Urea Nitrogen 20mg/dL (8-26) 18mg/dL (8-26) Creatinine 1.6mg/dL (0.7-1.3) 1.3mg/dL (0.7-1.3) Estimated GFR (Cockcroft-Gault) 46.8 59.4 BUN/Creatinine Ratio 13 (6-20) Glucose Level 954mg/dL (70-99) 567mg/dL (70-99) Calcium Level 9.9mg/dL (8.5-10.1) 9.3mg/dL (8.5-10.1) Phosphorus Level 3.3mg/dL (2.6-4.7) Magnesium Level 2.0mg/dL (1.8-2.4) Total Bilirubin 0.6mg/dL (0.2-1.0) Aspartate Amino Transf (AST/SGOT) 48U/L (15-37) Alanine Aminotransferase (ALT/SGPT) 66U/L (16-63) Alkaline Phosphatase 123U/L (46-116) Total Protein 7.9g/dL (6.4-8.2) Albumin 3.3g/dL (3.4-5.0) Albumin/Globulin Ratio 0.7 (1.0-1.7) Test 05/14/16 21:33 05/14/16 22:34 05/14/16 23:36 05/15/16 00:41 Glucose (Fingerstick) 355mg/dL (70-99) 311mg/dL (70-99) 262mg/dL (70-99) 268mg/dL (70-99) Test 05/15/16 01:37 05/15/16 03:04 05/15/16 03:59 05/15/16 04:10 Glucose (Fingerstick) 236mg/dL (70-99) 219mg/dL (70-99) 198mg/dL (70-99) White Blood Count 7.0x10^3/uL (4.0-11.0) Red Blood Count 5.24x10^6/uL (4.30-5.70) Hemoglobin 15.1g/dL (13.0-17.5) Hematocrit 43.7% (39.0-53.0) Mean Corpuscular Volume 83fL (79-100) Mean Corpuscular Hemoglobin 29pg (25-35) Mean Corpuscular Hemoglobin Concent 34g/dL (31-37) Red Cell Distribution Width 13.8% (11.5-14.5) Platelet Count 243x10^3/uL (140-400) Neutrophils (%) (Auto) 47% (31-73) Lymphocytes (%) (Auto) 37% (24-48) Monocytes (%) (Auto) 9% (0-9) Eosinophils (%) (Auto) 5% (0-3) Basophils (%) (Auto) 3% (0-3) Neutrophils # (Auto) 3.3x10^3uL (1.8-7.7) Lymphocytes # (Auto) 2.6x10^3/uL (1.0-4.8) Monocytes # (Auto) 0.6x10^3/uL (0.0-1.1) Eosinophils # (Auto) 0.3x10^3/uL (0.0-0.7) Basophils # (Auto) 0.2x10^3/uL (0.0-0.2) Sodium Level 138mmol/L (136-145) Potassium Level 2.8mmol/L (3.5-5.1) Chloride Level 102mmol/L (98-107) Carbon Dioxide Level 26mmol/L (21-32) Anion Gap 10 (6-14) Blood Urea Nitrogen 15mg/dL (8-26) Creatinine 0.9mg/dL (0.7-1.3) Estimated GFR (Cockcroft-Gault) 90.8 Glucose Level 197mg/dL (70-99) Calcium Level 9.3mg/dL (8.5-10.1) Test 05/15/16 05:15 05/15/16 06:18 05/15/16 07:26 05/15/16 08:27 Glucose (Fingerstick) 171mg/dL (70-99) 174mg/dL (70-99) 137mg/dL (70-99) 149mg/dL (70-99) Test 05/15/16 09:27 Glucose (Fingerstick) 230mg/dL (70-99) Review of Systems Review of Systems feels ok, no focal pain KANDIS MEYERS MD May 15, 2016 10:45
[2016-05-15] MEDS: DO NOT USE 40 MG/0.4 ML DISP.SYRIN SQ SCH ×2 (10:57→23:01)
[2016-05-15] MEDS: METFORMIN 500 MG TABLET. PO SCH ×2 (10:57→17:44)
[2016-05-15] MEDS: LISINOPRIL 5 MG TABLET. PO SCH (10:57)
[2016-05-15] MEDS: FUROSEMIDE 80 MG TABLET PO SCH (10:57)
[2016-05-15] MEDS: INSULIN ASPART 300 UNITS/3 ML INSULN.PEN SQ SCH ×2 (11:01→18:04)
[2016-05-15] MEDS ORDERED: INSULIN ASPART 300 UNITS/3 ML INSULN.PEN SQ SCH (11:30)
[2016-05-15] MEDS: ATORVASTATIN CALCIUM 20 MG TABLET PO SCH (20:55)
[2016-05-15] MEDS ORDERED: FAMOTIDINE 20 MG TABLET. PO SCH (21:00)
[2016-05-15] MEDS ORDERED: INSULIN DETEMIR 300 UNITS/3 ML INSULN.PEN. SQ SCH (21:00)
[2016-05-16 03:01] VITALS: BP 90/51
--- NOTE | 2016-05-16 04:53 | ACF ---
Admission Forms Criteria GENERAL ADMISSION CRITERIA (Place 'X' for any and all applicable criteria): Admission is indicated for ANY ONE of the following: [ ]I. Hemodynamic instability as indicated by ANY ONE of the following(1)(2) (3)(4)(5): [ ]a) Vital sign abnormality not readily corrected by appropriate treatment within 12 to 24 hours indicated by ANY ONE of the following: [ ]i) Hypotension [ ]ii) Symptomatic Tachycardia unresponsive to treatment (eg , analgesia, fluids, sedation as indicated) [ ]iii) Orthostatic vital sign changes unresponsive to treatment (eg, fluids) [ ]b) Vital sign abnormality that is severe indicated by ANY ONE of the following: [ ]i) Inadequate perfusion indicated by ANY ONE of the following: [ ]1) Lactic acidosis (greater than 2 mmol/L) [ ]2) New abnormal capillary refill (greater than 3 seconds) [ ]3) Other metabolic acidosis (arterial pH less than 7.35) not otherwise explained [ ]4) Reduced urine output [ ]5) Altered mental status [ ]6) Myocardial Ischemia [ ]v) Mean arterial pressure[A] less than 60 mm Hg [ ]vi) Mean arterial pressure[A] less than 70 mm Hg after 30 minutes of appropriate treatment (eg, fluid resuscitation) [ ]vii) IV inotropic or vasopressor medication required to maintain adequate blood pressure or perfusion [ ]viii) Sustained heart rate greater than 120 beats per minute in adult or child 6 years or older[B]] [ ]II. Hypertension requiring inpatient treatment as indicated by ANY ONE of the following(6)(7)(8): [ ]a) SBP greater than 220 mm Hg or DBP greater than 120 mm Hg despite treatment [ ]b) SBP greater than 140 mm Hg or DBP greater than 100 mm Hg with evidence of acute end organ damage as indicated by ANY ONE of the following: [ ]i) Encephalopathy [ ]ii) Acute renal failure as indicated by new onset of ANY ONE of the following(9)(10)(11)(12)(13): [ ]1) A 3-fold rise in serum creatinine from baseline [ ]2) Serum creatinine greater than 4 mg/dL ( 354 micromoles/L) with acute rise greater than 0.5 mg/dL (44.2 micromoles/L) [ ]3) Reduction of more than 75% in estimated glomerular filtration rate from baseline [ ]4) Estimated glomerular filtration rate less than 35 mL/min/1.73m2 (0.59 mL/sec/1.73m2) in child up to 18 years of age [ ]5) Cessation of urine output indicated by ALL of the following: [ ]A. Adequate volume status [ ]B. Inadequate urine output as indicated by ANY ONE of the following: [ ]a. Urine output less than 0.3 mL/kg/hr for 24 hours [ ]b. Anuria (urine output less than 0.1 mL/kg/hr) for 12 hours [ ]iii) Aortic dissection [ ]iv) Myocardial ischemia [ ]v) Left ventricular heart failure [ ]vi) Retinal hemorrhage [ ]vii) Other significant finding [ ]c) Hypertension in child requiring inpatient treatment as indicated by ALL of the following(14)(15)(16): [ ]i) Outpatient treatment not effective, not available, or not appropriate [ ]ii) SBP or DBP greater than 95th percentile for age [ ]iii) Evidence of acute end organ damage as indicated by ANY ONE of the following: [ ]1) Altered mental status [ ]2) Acute renal failure as indicated by new onset of ANY ONE of the following(9)(10)(11)(12)(13): [ ]A. A 3-fold rise in serum creatinine from baseline [ ]B. Serum creatinine greater than 4 mg/dL (354 micromoles/L) with acute rise greater than 0.5 mg/dL (44.2 micromoles/L) [ ]C. Reduction of more than 75% in estimated glomerular filtration rate from baseline [ ]D. Estimated glomerular filtration rate less than 35 mL/min/1.73m2 (0.59 mL/sec/1.73m2)in child up to 18 years of age [ ]E. Cessation of urine output indicated by ALL of the following: [ ]a. Adequate volume status [ ]b. Inadequate urine output as indicated by ANY ONE of the following: [ ]1) Urine output less than 0.3 mL/kg/hr for 24 hours [ ]2) Anuria (urine output less than 0.1 mL/kg/hr) for 12 hours [ ]3) Severe headache [ ]4) Visual disturbance [ ]5) Retinal hemorrhage [ ]6) Other significant finding [ ]III. Acute cardiac or peripheral ischemia as indicated by ANY ONE of the following: [ ]a) Acute coronary syndrome(17)(18) [ ]b) Acute peripheral ischemia (eg, pulseless, cool, mottled, or cyanotic extremity)(19) [ ]IV. Cardiac arrhythmias or findings of immediate concern indicated by ANY ONE of the following(20)(21): [ ]a) Heart rhythms that are inherently dangerous or unstable indicated by ANY ONE of the following(22)(23)(24): [ ]i) Resuscitated ventricular fibrillation or cardiac arrest [ ]ii) Ventricular escape rhythm [ ]iii) Sustained ventricular tachycardia (30 seconds or more of ventricular rhythm at greater than 100 beats per minute) [ ]iv) Nonsustained ventricular tachycardia and ANY ONE of the following: [ ]1) Suspected cardiac ischemia as cause or consequence of ventricular tachycardia [ ]2) In setting of acute myocarditis [ ]b) Unstable cardiac conduction defects indicated by ANY ONE of the following(24)(25)(26): [ ]i) Type II second-degree atrioventricular block [ ]ii) Third-degree atrioventricular block [ ]iii) New-onset left bundle branch block with suspected myocardial ischemia [ ]c) Any heart rhythm and ANY ONE of the following(22)(23)(27)(28)( 29): [ ] i) Continuous long-term ECG monitoring needed (eg, initiation of drug requiring monitoring for more than 24 hours) [ ] ii) Patient has automatic implanted cardioverter defibrillator that is repeatedly firing, malfunctioning, or in need of immediate adjustment of settings beyond the scope of ambulatory or observation care. [ ]d) Heart rhythms of concern due to ANY ONE of the following: [ ]i) Hypotension [ ]ii) Respiratory distress [ ]iii) Association with other significant symptoms (eg, bradycardia with syncope or ongoing dizziness, supraventricular tachycardia with chest pain) (27)(28) (30) [ ] V. Severe heart failure as indicated by ANY ONE of the following ( 31)(32): [ ]a) Respiratory distress [ ]b) Hypotension [ ]c) Anasarca (refractory to outpatient therapy) [ ]d) Cardiac arrhythmias of immediate concern [ ]e) Myocardial ischemia [ ]. Respiratory abnormalities, including ANY ONE of the following(33)(34) (35)(36): [ ]a) Respiratory rate greater than 30 breaths per minute unresponsive to treatment [A] [ ]b) New saturation of arterial oxygen less than 90% [ ]c) New partial pressure of carbon dioxide greater than 44 mm Hg ( 5.9 kPa) [ ]d) Supplemental oxygen or respiratory treatments needed that are new or not performable at other levels of care [ ]e) New-onset cyanosis [ ]f) Inability to protect airway [ ]g) Chronic lung disease with severe deterioration (not responsive to emergency and observation care treatment as appropriate) as indicated by ANY ONE of the following(34)(36 ): [ ]i) SaO2 5% below baseline in patient with chronic hypoxemia [ ]ii) New requirement for supplemental oxygen to keep SaO2 at baseline or acceptable level [ ]iii) Required supplemental oxygen performable only in acute inpatient setting [ ]iv) Severe airflow or ventilation abnormalities [ ]v) Previously mobile patient unable to walk between rooms [ ]vi Inability to eat or sleep due to dyspnea [ ]vii) Rapid rate of exacerbation onset [ ]viii) Altered mental status ]VII. Severe airflow or ventilation abnormalities (not responsive to emergency and observation care treatment as appropriate) as indicated by ANY ONE of the following(33)(34)(35)(37): [ ]a) PCO2 greater than 42 mm Hg (5.6 kPa) and pH less than 7.35 (new ) [ ]b) Documented PCO2 increased more than 5 mm Hg (0.7 kPa) from disease baseline [ ]c) Airflow measurements [B] less than 60% of previous best or predicted (eg, peak expiratory flow rate less than 300 L/minute) despite intensive emergent treatment [C] [ ]d) Required respiratory treatments that are performable only in acute inpatient setting [ ]VIII. Impending or actual respiratory arrest ( Also use Respiratory Failure GRG for severe respiratory disease and long-term mechanical ventilation patients) [ ]IX. Neurologic abnormalities, including ANY ONE of the following: [ ]a) New findings that suggest ANY ONE of the following: [ ]i) CALCULATOR OPERATOR infection(38) [ ]ii) Cerebral bleeding, ischemia, or vasospasm(39)(40) [ ]iii) Increased intracranial pressure, hydrocephalus, or cerebral edema(41)(42)(43) [ ]iv) Spinal cord injury(44) [ ]b) Uncontrolled seizures(45) [ ]c) New-onset coma (eg, Cherry coma scale score less than 9) or unexplained abnormal mental status (eg, Cherry coma scale score less than 14) [D](41)(46)(47) [ ]X. New-onset severe neurologic findings requiring inpatient care; examples include(42)(48)(49): [ ]a) Papilledema [ ]b) Cerebral edema [ ]c) Mass effect on CT scan [ ]XI. Suspected acute intra-abdominal process with peritoneal signs, abdominal mass, or similar findings (50)(51)(52) [X]XII. Severe physiologic disorder remaining after emergency or observation level care (as appropriate) as indicated by ANY ONE of the following (53): [ ]a) Significant dehydration [ ]b) Diabetic ketoacidosis [X]c) Hyperglycemic hyperosmolar state (eg, osmolality greater than 320 mOsm/kg (mmol/kg) [ ]d) Hypoglycemia [ ]e) Other (new) acid-base disorder with pH less than 7.35 or greater than 7.5(54) [ ]f) Thyroid storm (55) [ ]g) Myxedema coma (55) [ ]XIII. Abdominal abnormalities with ANY ONE of the following(56)(57): [ ]a) Absent bowel sounds with complete ileus [ ]b) Signs of intestinal obstruction or peritonitis [E] [ ]c) Nausea and vomiting that cannot be controlled with outpatient or observation care [ ]XIV. Acute renal failure as indicated by new onset of ANY ONE of the following(9)(10)(11)(12)(13): [ ]a) A 3-fold rise in serum creatinine from baseline [ ]b) Serum creatinine greater than 4 mg/dL (354 micromoles/L) with acute rise greater than 0.5 mg/dL (44.2 micromoles/L) [ ]c) Reduction of more than 75% in estimated glomerular filtration rate from baseline [ ]d) Estimated glomerular filtration rate less than 35 mL/min/ 1.73m2 (0.59 mL/sec/1.73m2) in child up to 18 years of age [ ]e) Cessation of urine output indicated by ALL of the following: [ ]i) Adequate volume status [ ]ii) Inadequate urine output as indicated by ANY ONE of the following: [ ]1) Urine output less than 0.3 mL/kg/hr for 24 hours [ ]2) Anuria (urine output less than 0.1 mL/kg/hr) for 12 hours [ ]XV. Significant uremic complications as indicated by ANY ONE of the following(58)(59)(60): [ ]a) Outpatient therapy is ineffective or not feasible for ANY ONE of the following: [ ]i) Severe heart failure [ ]ii) Severehypertension [ ]iii) Pleural effusion [ ]iv) Pericarditis or pericardial effusion [ ]b) Cardiac arrhythmias of immediate concern [ ]c) Intractable nausea or vomiting [ ]d) Recurrent seizures [ ]e) Encephalopathy [ ]f) Bleeding abnormalities (eg, platelet dysfunction) with active (eg, gastrointestinal) bleeding [ ]g) Dialysis indicated before long-term access or ambulatory arrangements can be made [ ]h) Significant metabolic or electrolyte abnormalities (eg, severe acidosis or hyperkalemia) [ ]XVI. High fever or other high-risk infection situation as indicated by ANY ONE of the following(61)(62)(63)(64): [ ]a) Outpatient and observation care antimicrobial treatment unavailable, not effective, or not appropriate [ ]b) Documented bacteremia [ ]c) Temperature greater than 40.5 degrees C (104.9 degrees F) ( oral) [ ]d) Temperature greater than 39.5 degrees C (103.1 degrees F) ( oral) or less than 36 degrees C (96.8 degrees F) (rectal) that does not respond to e treatment and observation care [ ] XVII. Temperature less than 95 degrees F (35 degrees C)(rectal)(65) [ ] XVIII. Severe nutritional abnormalities as indicated by ALL of the following (66)(67): [ ]a) Inability to tolerate or establish sufficient oral or other enteral nutrition in outpatient setting [ ]b) Parenteral nutrition regimen need that must be implemented on inpatient basis [ ] XIX. Severe electrolyte abnormalities indicated by ALL of the following(68) (69)(70): [ ]a) Electrolytes and associated findings are not as expected for patient baseline or acceptable treatment effects. [ ]b) Severe abnormalities indicated by ANY ONE of the following: [ ]i) Sodium less than 130 mEq/L (mmol/L) (new) [ ]ii)Sodium less than 135 mEq/L (mmol/L) with ANY ONE of the following: [ ]1) Uncorrectable (to near normal or chronic baseline) after trial of outpatient and emergency treatment [ ]2) Altered mental status [ ]3) Seizures [ ]4) Severe medical etiology requiring inpatient management (eg, heart failure, hypovolemia) [ ]iii) Sodium greater than 155 mEq/L (mmol/L) [ ]iv) Sodium greater than 150 mEq/L (mmol/L) with ANY ONE of the following: [ ]1) Uncorrectable (to near normal or chronic baseline) with outpatient and emergency treatment [ ]2) Altered mental status [ ]3) Seizures [ ]4) Severe medical etiology (eg, hypovolemia, diabetes insipidus) [ ]v) Potassium less than 2.5 mEq/L (mmol/L) despite outpatient and emergency treatment [ ]vi) Potassium less than 3 mEq/L (mmol/L) with ANY ONE of the following: [ ]1) Weakness [ ]2) Cardiac abnormality (eg, arrhythmia, conduction disturbance) [ ]3) Cardiac ischemia [ ]4) Ileus [ ]5) Ongoing medical cause requiring inpatient management (eg, acute renal wasting or SIADH) [ ]6) Other severe symptoms [ ]vii) Potassium greater than 6.5 mEq/L (mmol/L) [ ]viii) Potassium greater than 5 mEq/L (mmol/L) with ANY ONE of the following: [ ]1) Uncorrectable (to near normal or chronic baseline) with outpatient and emergency treatment [ ]2) Severe ECG findings [F] [ ]3) Acute worsening of renal failure (creatinine greater than 2.5 mg/dL (221 micromoles/L) or significant elevation for age and size) [ ]4) Severe weakness [ ]5) Severe medical etiology (eg, hemolysis, infection, drug overdose) [ ]ix) Calcium less than 7 mg/dL (1.75 mmol/L) despite outpatient and emergency treatment (72) [ ]x) Calcium less than 8 mg/dL (2 mmol/L) with significant symptoms or findings; examples include(72): [ ]1) Altered mental status [ ]2) Muscle spasms [ ]3) Seizures [ ]4) Breathing difficulty [ ]5) Cardiac abnormality (eg, arrhythmia or conduction disturbance) [ ]xi) Calcium greater than 14 mg/dL (3.5 mmol/L)(72) [ ]xii) Calcium greater than 12 mg/dL (3 mmol/L) with ANY ONE of the following(72): [ ]1) Uncorrectable (to near normal or chronic baseline) with outpatient and emergency treatment [ ]2) Significant dehydration or hypovolemia as indicated by ALL of the following(70)(73)(74): [ ]A. Not resolved with initial treatments [ ]B. Clinically significant dehydration as indicated by ANY ONE of the following: [ ]a. Vomiting refractory to outpatient treatment (ie, precluding oral rehydration) [ ]b. Inability to drink [ ]c. Hypernatremia or other electrolyte abnormality unable to be corrected with outpatient and emergency treatment [ ]d. Failure to remain hydrated with outpatient therapy [ ]e. Reduced urine output [ ]f. Hypotension [ ]g. Serious cause for dehydration requiring acute hospitalization (eg, bowel obstruction, increased intracranial pressure, infectious cause) [ ]h. Child with ANY ONE of the following(75): [ ]1) Severe abdominal tenderness [ ]2) Adequate care not available at home [ ]3) Severe dehydration ( greater than 9% loss of body weight) [ ]4) Significant symptoms or findings; examples include: [ ]A. Altered mental status [ ]B. Cardiac abnormality (eg, arrhythmia, conduction disturbance) [ ]C. Malignant etiology requiring inpatient treatment [ ]xiii) Phosphorus less than 1 mg/dL (0.32 mmol/L) [ ]xiv) Phosphorus less than 1.5 mg/dL (0.48 mmol/L) with ANY ONE of the following: [ ]1) Patient unresponsive to outpatient and emergency treatment [ ]2) Significant symptoms or findings; examples include: [ ]A. Weakness [ ]B. Altered mental status [ ]C. Breathing difficulty [ ]D. Seizures [ ]E. Rhabdomyolysis [ ]xv) Phosphorus greater than 10 mg/dL (3.2 mmol/L) [ ]xvi) Phosphorus greater than 4.5 mg/dL (1.45 mmol/L) (new) with ANY ONE of the following: [ ]1) Severe medical etiology (eg, crush injury, acute renal failure) [ ]2) Associated hypocalcemia with significant findings; examples include: [ ]A. Neurologic symptoms [ ]B. Altered mental status [ ]C. Muscle spasms [ ]D. Seizures [ ]E. Breathing difficulty [ ]F. Cardiac abnormality (eg, arrhythmia, conduction disturbance) [ ]xvii) Magnesium less than 1 mg/dL (0.41 mmol/L) [ ]xviii) Magnesium less than 1.5 mg/dL (0.62 mmol/L) with ANY ONE of the following: [ ]1) Patient unresponsive to outpatient and emergency treatment [ ]2) Associated hypocalcemia with significant findings; examples include: [ ]A. Altered mental status [ ]B. Muscle spasms [ ]C. Seizures [ ]D. Breathing difficulty [ ]E. Cardiac abnormality (eg, arrhythmia , conduction disturbance) [ ]3) Associated hypokalemia (potassium less than 3 mEq/L (mmol/L)) with risk of arrhythmia [ ]xix) Magnesium greater than 4 mEq/L (2 mmol/L) [ ]xx) Magnesium greater than 2.5 mEq/L (1.25 mmol/L) with significant symptoms or findings; examples include: [ ]1) Weakness [ ]2) Altered mental status [ ]3) Cardiac abnormality (eg, arrhythmia, conduction disturbance) [ ]4) Breathing difficulty [ ]5) Severe medical etiology (eg, renal failure, hypovolemia) [ ]xxi) Uric acid greater than 20 mg/dL (1190 micromoles/L)(76) [ ]xxii) Uric acid greater than 8 mg/dL (476 micromoles/L) with significant symptoms or findings of tumor lysis syndrome; examples include(76): [ ]1) Creatinine greater than 1.5 times upper limit of normal [ ]2) Cardiac abnormality (eg, arrhythmia, conduction disturbance) [ ]3) Seizure [ ]XX. Acute blood loss causing significant abnormality as indicated by ANY ONE of the following(77)(78): [ ]a) Hemoglobin less than 10 g/dL (100 g/L) (not baseline) [ ]b) Hematocrit less than 30% (0.30) (not baseline) [ ]c) Repeat hematocrit decreased more than 2% (0.02) [ ]d) Uncontrolled bleeding [ ]XXI. Severe anemia indicated by ANY ONE of the following(78)(79): [ ]a) Altered mental status [ ]b) Chest pain [ ]c) Exertional dyspnea [ ]d) Syncope [ ]e) Other findings suggesting inadequate perfusion [ ]f) Treatment with transfusion or volume replacement is ineffective at resolving ANY ONE of the following [G]: [ ]i) Tachycardia for age [ ]ii) Orthostatic vital sign changes as indicated by ANY ONE of the following(80): [ ]1) Fall in SBP of 20 mm Hg or more 1 to 3 minutes after patient sits or stands from recumbent position [ ]2) Fall in DBP of 10 mm Hg or more 1 to 3 minutes after patient sits or stands from recumbent position [ ]XXII. High-risk low platelet count as indicated by ANY ONE of the following( 81)(82): [ ]a) Severe or life-threatening bleeding (eg, intracranial, major gastrointestinal, or extensive mucosal bleeding), with any reduced platelet count [ ]b) Platelet count less than 20,000/mm3 (20 x109/L) with any active bleeding [ ]c) Platelet count less than 10,000/mm3 (10 x109/L) with minor purpura or petechiae [ ]d) Platelet count less than 5000/mm3 (5 x109/L) [ ]e) Low platelet count with hemolytic anemia [ ]XXIII. Disseminated intravascular coagulation(77)(83) [ ]XXIV. Severe adverse drug or systemic toxin reaction requiring inpatient treatment; examples include(84)(85): [ ]a) Serotonin syndrome(86) [ ]b) Neuroleptic malignant syndrome(86) [ ]c) Cholinergic syndrome with severe symptoms (eg, bronchorrhea, weakness, mental status changes, seizures) [ ]d) Sympathetic syndrome with severe symptoms (eg, seizures, mental status changes, cardiac dysrhythmias) [ ]e) Anticholinergic syndrome [ ]XXV. Severe pain requiring acute inpatient management as indicated by ALL of the following (87)(88)(89): [ ]a) Continuous or frequent (eg, every 2 to 4 hours) parenteral analgesics required [H] [ ]b) Rapid improvement expected from treatment or acute intervention (eg, surgery, anesthesia procedure) [ ]XXVI.Severe behavioral health issues judged unmanageable at a lower level of care (eg, residential) in a patient who is ANY ONE of the following(91) [ ]a) Acutely suicidal [ ]b) A danger to self (eg, self-mutilating or suicidal behavior) [ ]c) A danger to others (eg, assaultive or homicidal behavior) [ ]d) Incapacitated because of grave disability (eg, inability to provide for self at lower level of care) (92) [ ]XXVII. Inpatient monitoring needed; examples include(1)(3)(87)(93)(94)(95)(96 ): [ ]a) Vital signs, neurologic signs, or vascular checks more frequently than every 4 hours [ ]b) Cardiac or respiratory monitoring beyond the scope (eg, over 24 hours) of observation care [ ]c) Pulmonary artery catheter monitoring [ ]d) Suspected compartment syndrome(97) (98) [ ]e) Cerebral bleeding, hydrocephalus, or vasospasm monitoring [ ]f) Increased intracranial pressure or cerebral edema monitoring [ ]g) monitoring [ ]XXVIII. Treatment requiring inpatient care; examples include: [ ]a) IV fluid to replace significant ongoing losses (greater than 3 L/m2 per day)(53) [ ]b) High concentration oxygen (greater than 40%)(33)(99)(100) [ ]c) Frequent respiratory therapy (more frequently than every 4 hours) to maintain airflow rates greater than 60% of baseline(33)(99)(100) [ ]d) Epidural analgesia(87) [ ]e) IV anticoagulation, vasoactive, or antiarrhythmic medication(19 )(23) [ ]f) Acute thrombolytics (generally require 24 hours of observation )(101)(102) [ ]XXIX. Emergency procedures needed; examples include: [ ]a) Emergency inpatient surgery [ ]b) Temporary pacemaker placement(103) [ ]c) Chest tube placement with active evacuation (eg, suction, drainage)(104) [ ]d) Emergent cardioversion(105) [ ]e) Emergent cardiac or vascular procedures (eg, cardiac catheterization, angioplasty) (17)(18) [ ]f) Emergent dialysis access placement and institution(10)(106) [ ]g) Emergent pericardiocentesis(107) [ ]h) Emergent plasmapheresis or leukapheresis(83) [ ]i) Emergent tracheostomy The original [employer] content created by [employer] has been revised. The portions of the content which have been revised are identified through the use of italic text or in bold, and [facility] has neither reviewed nor approved the modified material. All other unmodified content is copyright [employer]. Please see references footnoted in the original [employer] edition 2016 Admission Criteria Met?: Yes ROQUE MADRIGAL May 16, 2016 04:53
[2016-05-16 07:00] VITALS: BP 115/68
[2016-05-16] MEDS: NYSTATIN TOPICAL POWDER 15GM BOTTLE. TP SCH (08:23)
[2016-05-16] MEDS: FUROSEMIDE 80 MG TABLET PO SCH (08:24)
[2016-05-16] MEDS: LISINOPRIL 5 MG TABLET. PO SCH (08:24)
[2016-05-16] MEDS: GABAPENTIN 100 MG CAPSULE. PO SCH ×2 (08:24→14:30)
[2016-05-16] MEDS: GABAPENTIN 400 MG CAPSULE. PO SCH ×2 (08:24→14:30)
[2016-05-16] MEDS: INSULIN ASPART 300 UNITS/3 ML INSULN.PEN SQ SCH ×2 (08:32→12:08)
[2016-05-16] MEDS: INSULIN DETEMIR 300 UNITS/3 ML INSULN.PEN. SQ SCH (08:32)
[2016-05-16 10:30] LABS: BASO % 1 % (0-3); EOS % 3 % (0-3); HEMATOCRIT 44.2 % (39.0-53.0); HEMOGLOBIN 15.5 g/dL (13.0-17.5); LYMPH % 29 % (24-48); MEAN CORPUSCULAR HEMOGLOBIN 29 pg (25-35); MEAN CORPUSCULAR HGB CONC 35 g/dL (31-37); MEAN CORPUSCULAR VOLUME 82 fL (79-100); MONO % 11 % (0-9); NEUT % 56 % (31-73); PLATELET COUNT 250 x10^3/uL (140-400); RED BLOOD COUNT 5.39 x10^6/uL (4.30-5.70); RED CELL DISTRIBUTION WIDTH 13.7 % (11.5-14.5); WHITE BLOOD COUNT 6.9 x10^3/uL (4.0-11.0)
[2016-05-16 10:47] LABS: ALBUMIN 2.6 g/dL (3.4-5.0); ALBUMIN/GLOBULIN RATIO 0.7 (1.0-1.7); CALCIUM 9.3 mg/dL (8.5-10.1); GFR 80.4; POTASSIUM 3.2 mmol/L (3.5-5.1); TOTAL BILIRUBIN 0.5 mg/dL (0.2-1.0); TOTAL PROTEIN 6.6 g/dL (6.4-8.2)
[2016-05-16 10:54] VITALS: BP 123/78
[2016-05-16] MEDS: DO NOT USE 40 MG/0.4 ML DISP.SYRIN SQ SCH (11:00)
[2016-05-16] MEDS: METFORMIN 500 MG TABLET. PO SCH (12:08)
[2016-05-16] MEDS ORDERED: POTASSIUM CHLORIDE 20 MEQ TABLET.ER. PO ONE (12:30)
[2016-05-16 14:22] VITALS: BP 117/70
--- NOTE | 2016-05-17 02:16 | DS ---
DATE OF DISCHARGE: 05/16/2016 DISCHARGE DIAGNOSES: 1. Diabetic ketoacidosis that has resolved. 2. Type 2 diabetes mellitus with poor control. 3. Diabetic peripheral neuropathy. BRIEF HOSPITAL COURSE: A 46-year-old male patient admitted to the hospital for DKA and being diagnosed with DKA for nearly 3 years and is admitted with blood sugars more than 1000 and the patient's HbA1c around 17 in 2016. Reportedly, the patient is not having enough financial support ____ and treated for DKA, symptoms improved with insulin GTT and later home medications have been resumed, and blood sugars have been controlled to less than 200s. I did ask social staff worker to help him to provide financial resources, and the patient is advised to strictly control his insulin and follow up with the primary care doctor. DISCHARGE PHYSICAL EXAMINATION: GENERAL: Alert, oriented times 3. HEART: S1, S2 present. LUNGS: Anterior chest clear. ABDOMEN: Soft, nontender, no organomegaly. EXTREMITIES: No edema. DISCHARGE DISPOSITION: Home. DISCHARGE CONDITION: Stable. PROGNOSIS: Guarded. FOLLOWUP: With primary care doctor in 1-2 weeks. Total time spent for discharge is 33 minutes for patient education, counseling, and coordination of care. AUGUSTO FOX MD DR: KIMBERLI/sheri JOB#: [id number] / [id number]
== END 2016-05-16 15:00 | disposition home or self-care (01) | DRG 682 ==
LOC: ER 16:30 → CVICU 17:54 → 5 SOUTH 05-15 16:02
PROVIDERS: ADMIT Internal Medicine; ATTEND Internal Medicine
DX: N17.9 Acute kidney failure, unspecified (principal); E13.10 Other specified diabetes mellitus with ketoacidosis without coma; Z68.42 Body mass index [BMI] 45.0-49.9, adult; E44.1 Mild protein-calorie malnutrition; E87.1 Hypo-osmolality and hyponatremia; E87.8 Other disorders of electrolyte and fluid balance, not elsewhere classified; E66.9 Obesity, unspecified; E78.00 Pure hypercholesterolemia, unspecified; I10 Essential (primary) hypertension; Z85.528 Personal history of other malignant neoplasm of kidney; Z90.49 Acquired absence of other specified parts of digestive tract; Z90.5 Acquired absence of kidney; Z88.8 Allergy status to other drugs, medicaments and biological substances; Z91.041 Radiographic dye allergy status
CPT/HCPCS: 36415; 70450; 74022; 80048; 80053; 81001; 82947; 83036; 83735; 84100; 85027; 87641; 93005; 96374; G0481; J1650; J1815; J7030; 99285-25

== ENCOUNTER 2016-06-05 14:19 | Emergency (ER) | payer SELFPAY ==
[~2016-06-05] VITALS: Ht 185.4 cm; Wt 152.0 kg
--- NOTE | 2016-06-05 15:40 | RAD ---
Indication cough. A single view of the chest was obtained. Comparison is made to a study 05/14/2016. The heart and pulmonary vessels are normal. There are suggested patchy infiltrates in both lower lobes. Left is somewhat more prominent than the right. There is no pleural fluid or pneumothorax. IMPRESSION: Patchy infiltrates, suggesting pneumonia, in the lower lobes
[2016-06-05] MEDS ORDERED: IV NORMAL SALINE 1000ML BAG 1,000 ML IV ONE (16:00)
[2016-06-05] MEDS ORDERED: ONDANSETRON PF 4 MG/2 ML VIAL. IV ONE (16:00)
[2016-06-05 16:15] LABS: BASO % 1 % (0-3); EOS % 6 % (0-3); HEMATOCRIT 43.6 % (39.0-53.0); HEMOGLOBIN 14.7 g/dL (13.0-17.5); LYMPH # 1.7 x10^3/uL (1.0-4.8); LYMPH % 35 % (24-48); MEAN CORPUSCULAR HEMOGLOBIN 29 pg (25-35); MEAN CORPUSCULAR HGB CONC 34 g/dL (31-37); MEAN CORPUSCULAR VOLUME 85 fL (79-100); MONO % 17 % (0-9); NEUT % 42 % (31-73); PLATELET COUNT 218 x10^3/uL (140-400); RED BLOOD COUNT 5.16 x10^6/uL (4.30-5.70); RED CELL DISTRIBUTION WIDTH 14.4 % (11.5-14.5); WHITE BLOOD COUNT 4.8 x10^3/uL (4.0-11.0)
--- NOTE | 2016-06-05 16:16 | PHYS DOC ---
Past Medical History Past Medical History: Cancer, Diabetes-Type II, High Cholesterol, Hypertension Additional Past Medical Histor: Renal cancer 06/2012 - refused chemotherapy and radiation. Past Surgical History: Appendectomy, Cholecystectomy, Other Additional Past Surgical Histo: Left Nephrectomy Alcohol Use: None Drug Use: None Adult General Chief Complaint Chief Complaint: FLU SYMPTOM HPI HPI 46-year-old diabetic male who presents with 3-4 days of worsening cough and then hemoptysis that he states is streaks in his mucus today. He denies any significant shortness of breath or chest pain although he does state he has a mild headache that is likely secondary to coughing. He states he has not been able to drink much due to ongoing nausea. His blood glucose today is 160 which is actually low for him. He states he is usually poorly controlled diabetic and has blood glucose ranges in the 400s. He is speaking in complete sentences and in no acute distress Review of Systems Review of Systems Constitutional: Denies fever or chills [] Eyes: Denies change in visual acuity, redness, or eye pain [] HENT: Denies nasal congestion or sore throat [] Respiratory: Denies cough or shortness of breath [] Cardiovascular: No additional information not addressed in HPI [] GI: Denies abdominal pain, nausea, vomiting, bloody stools or diarrhea [] : Denies dysuria or hematuria [] Musculoskeletal: Denies back pain or joint pain [] Integument: Denies rash or skin lesions [] Neurologic: Denies headache, focal weakness or sensory changes [] Endocrine: Denies polyuria or polydipsia [] Current Medications Current Medications Current Medications Medications (Trade) Dose Ordered Sig/Mario Start Time Stop Time Status Last Admin Dose Admin Ondansetron HCl (Zofran) 4 mg 1X ONCE 06/05/16 16:00 06/05/16 16:01 DC 06/05/16 16:32 4 MG Sodium Chloride (Iv Sodium Chloride 0.9% 1000ml Bag) 1,000 ml @ 1,000 mls/hr 1X ONCE 06/05/16 16:00 06/05/16 16:59 DC 06/05/16 16:32 1,000 MLS/HR Allergies Allergies Allergies Coded Allergies Type Severity Reaction Last Updated Verified Iodinated Contrast Media - Oral and Allergy Intermediate 04/06/15 Yes meperidine HCl Allergy Intermediate 04/06/15 Yes I S O L A T I O N *CONTACT* Allergy Unknown 05/15/16 Yes Physical Exam Physical Exam Constitutional: Well developed, well nourished, no acute distress, non-toxic appearance. [] HENT: Normocephalic, atraumatic, bilateral external ears normal, oropharynx moist, no oral exudates, nose normal. [] Eyes: PERRLA, EOMI, conjunctiva normal, no discharge. [] Neck: Normal range of motion, no tenderness, supple, no stridor. [] Cardiovascular:Heart rate regular rhythm, no murmur [] Lungs & Thorax: Bilateral breath sounds clear to auscultation [] Abdomen: Bowel sounds normal, soft, no tenderness, no masses, no pulsatile masses. [] Skin: Warm, dry, no erythema, no rash. [] Back: No tenderness, no CVA tenderness. [] Extremities: No tenderness, no cyanosis, no clubbing, ROM intact, no edema. [] Neurologic: Alert and oriented X 3, normal motor function, normal sensory function, no focal deficits noted. [] Psychologic: Affect normal, judgement normal, mood normal. [] Current Patient Data Vital Signs Vital Signs Date Time Temp Pulse Resp B/P Pulse Ox O2 Delivery O2 Flow Rate FiO2 06/05/16 17:40 80 16 142/88 97 Room Air 06/05/16 14:26 98.0 98.0 Lab Values Laboratory Tests Test 06/05/16 15:35 06/05/16 16:05 Influenza Type A Antigen Negative (NEGATIVE) Influenza Type B Antigen Negative (NEGATIVE) White Blood Count 4.8x10^3/uL (4.0-11.0) Red Blood Count 5.16x10^6/uL (4.30-5.70) Hemoglobin 14.7g/dL (13.0-17.5) Hematocrit 43.6% (39.0-53.0) Mean Corpuscular Volume 85fL (79-100) Mean Corpuscular Hemoglobin 29pg (25-35) Mean Corpuscular Hemoglobin Concent 34g/dL (31-37) Red Cell Distribution Width 14.4% (11.5-14.5) Platelet Count 218x10^3/uL (140-400) Neutrophils (%) (Auto) 42% (31-73) Lymphocytes (%) (Auto) 35% (24-48) Monocytes (%) (Auto) 17% (0-9) H Eosinophils (%) (Auto) 6% (0-3) H Basophils (%) (Auto) 1% (0-3) Neutrophils # (Auto) 2.0x10^3uL (1.8-7.7) Lymphocytes # (Auto) 1.7x10^3/uL (1.0-4.8) Monocytes # (Auto) 0.8x10^3/uL (0.0-1.1) Eosinophils # (Auto) 0.3x10^3/uL (0.0-0.7) Basophils # (Auto) 0.0x10^3/uL (0.0-0.2) Sodium Level 138mmol/L (136-145) Potassium Level 3.9mmol/L (3.5-5.1) Chloride Level 102mmol/L (98-107) Carbon Dioxide Level 26mmol/L (21-32) Anion Gap 10 (6-14) Blood Urea Nitrogen 9mg/dL (8-26) Creatinine 1.0mg/dL (0.7-1.3) Estimated GFR (Cockcroft-Gault) 80.4 Glucose Level 182mg/dL (70-99) H Calcium Level 9.1mg/dL (8.5-10.1) Troponin I Quantitative < 0.017ng/mL (0.000-0.055) Laboratory Tests 06/05/16 16:05 Laboratory Tests 06/05/16 16:05 EKG EKG EKG as interpreted by me shows a sinus rhythm with a rate of 80 bpm with a leftward axis. There are no acute ischemic findings on this EKG. Intervals are normal. Radiology/Procedures Radiology/Procedures Indication cough. A single view of the chest was obtained. Comparison is made to a study 05/14/2016. The heart and pulmonary vessels are normal. There are suggested patchy infiltrates in both lower lobes. Left is somewhat more prominent than the right. There is no pleural fluid or pneumothorax. IMPRESSION: Patchy infiltrates, suggesting pneumonia, in the lower lobes Course & Med Decision Making Course & Med Decision Making Pertinent Labs and Imaging studies reviewed. (See chart for details) 46 yo male with mild hemoptysis the last day has a chest film that shows a possible pneumonia. Laboratory workup is still pending at this time. Patient is not requiring any oxygen and appears in no acute distress. He'll be safe to discharge with a Z-Yong and close follow-up and to have his blood glucose continued to be rechecked. I also counseled him to continue to stay well- hydrated at home and a prescription for Zofran will be provided as well. His laboratory workup was unremarkable. He has no fever and his vital signs have been normal otherwise. I'll be discharging him with a course of antibiotic and Tessalon Perles and close follow-up with his primary care doctor for symptom resolution. Patient is very agreeable with this plan and discharged without incident. Dragon Disclaimer Dragon Disclaimer This electronic medical record was generated, in whole or in part, using a voice recognition dictation system. Departure Departure Impression: Primary Impression: Cough Additional Impression: Bronchitis Disposition: 01 HOME, SELF-CARE Admitting Physician: Other Condition: STABLE Referrals: NO PCP (PCP) Patient Instructions: Acute Bronchitis, Zcea-dw-Ilny, Cough, Adult, Easy-to- Read Additional Instructions: Please take your medication and antibiotic as prescribed. Return to the ER if you develop any worsening of your symptoms. Return to the ER if you develop any worsening of your breathing or coughing. Follow up with your primary doctor in the next 2-3 days for your symptoms. Scripts Ondansetron Hcl (Zofran)4 Mg Tablet4 Mg PO BID PRN NAUSEA/VOMITING #10 TAB Prov:ARINA DUKE DO 06/05/16 Benzonatate (Tessalon Perle)100 Mg [id number] Mg PO TID PRN COUGH #15 CAP Prov:ARINA DUKE DO 06/05/16 Azithromycin (Azithromycin Tablet)250 Mg Tablet1 Pkg PO UD #6 TAB Prov:ARINA DUKE DO 06/05/16 Problem Qualifiers ARINA DUKE DO Jun 05, 2016 16:16
[2016-06-05 16:32] LABS: CALCIUM 9.1 mg/dL (8.5-10.1); GFR 80.4; POTASSIUM 3.9 mmol/L (3.5-5.1)
[2016-06-05 16:36] LABS: OBC FLU VALID
--- NOTE | 2016-06-05 16:40 | EKG ---
[facility] [address] [place] [address] Test Date: 2016-06-05 Test Time: 16:37:42 Pat Name: PATRICIO VEGA Department: Room: Gender: M Planning Consultant: : 1970 Requested By: ARINA DUKE Order Number: [id number] Reading MD: Measurements Intervals [place] Rate: 80 P: 39 ND: 182 QRS: -9 QRSD: 84 T: 30 QT: 354 QTc: 412 Interpretive Statements SINUS RHYTHM LEFT ATRIAL ABNORMALITY LEFTWARD AXIS QRS(T) CONTOUR ABNORMALITY CONSIDER ANTEROLATERAL MYOCARDIAL DAMAGE CONSISTENT WITH INFERIOR INFARCT PROBABLY OLD RI6.01 Unconfirmed report Compared to ECG 05/14/2016 17:06:09 Atrial abnormality now present Myocardial infarct finding now present Sinus tachycardia no longer present
[2016-06-05] MEDS ORDERED: AZIT250T6 PO (17:10)
[2016-06-05] MEDS ORDERED: BENZ100C PO (17:10)
[2016-06-05 17:40] VITALS: BP 142/88
[2016-06-05] MEDS ORDERED: ONDA4TAB7 PO (17:41)
== END 2016-06-05 17:48 | disposition home or self-care (01) ==
LOC: ER 14:19
DX: R05 Cough (principal); J40 Bronchitis, not specified as acute or chronic; E11.9 Type 2 diabetes mellitus without complications; E78.00 Pure hypercholesterolemia, unspecified; I10 Essential (primary) hypertension; Z88.8 Allergy status to other drugs, medicaments and biological substances; Z91.041 Radiographic dye allergy status
CPT/HCPCS: 36415; 71010; 80048; 82947; 84484; 85027; 87804; 93005; 96361; 96374; 99285; J2405; J7030

== ENCOUNTER 2016-08-31 12:57 | Inpatient (IN) | payer OTHER ==
[~2016-08-31] VITALS: Ht 185.4 cm; Wt 152.0 kg
[2016-08-31] VITALS (8 sets, daily range): BP systolic 137–173; BP diastolic 56–105
[~2016-08-31 12:57] MED LIST changes: +AZIT250T6 PO; +BENZ100C PO; +NYST15PO9 TP; -NYST30PO9 TP; +ONDA4TAB7 PO
--- NOTE | 2016-08-31 13:09 | EKG ---
[facility] [address] [place] [address] Test Date: 2016-08-31 Test Time: 13:02:20 Pat Name: PATRICIO VEGA Department: Room: Gender: M Prototype Model Maker: : 1970 Requested By: REAL DUARTE Order Number: [id number] Reading MD: Measurements Intervals [place] Rate: 84 P: 48 MA: 182 QRS: -7 QRSD: 90 T: 12 QT: 356 QTc: 424 Interpretive Statements SINUS RHYTHM LEFT ATRIAL ABNORMALITY LEFTWARD AXIS QRS(T) CONTOUR ABNORMALITY CONSIDER INFERIOR INFARCT RI6.01 Unconfirmed report No previous ECG available for comparison
[2016-08-31] MEDS ORDERED: IV NORMAL SALINE 1000ML BAG 1,000 ML IV ONE ×4 (13:15→17:30)
[2016-08-31] MEDS ORDERED: INSULIN REGULAR 100 UNIT/ML 10ML VIAL. SQ ONE (13:15)
[2016-08-31 13:29] LABS: BILIRUBIN,URINE NEGATIVE (NEG); GLUCOSE,URINE >=1000 mg/dL (NEG); NITRITE,URINE NEGATIVE (NEG); PH,URINE 6.5; PROTEIN,URINE NEGATIVE (NEG-TRACE); UROBILINOGEN,URINE 0.2 mg/dL (0.2 mg/dL)
[2016-08-31 13:34] LABS: BARBITURATES NEG (NEG); BENZODIAZEPINES NEG (NEG); CANNABINOIDS NEG (NEG); COCAINE NEG (NEG); METHADONE NEG (NEG); OPIATES NEG (NEG); PHENCYCLIDINE NEG (NEG)
[2016-08-31 13:37] LABS: HCO3 ABG 23 mmol/L (21-28); PCO2 ABG 38 mmHg (35-46); PH ABG 7.41 (7.35-7.45); PO2 ABG 83 mmHg (75-108); SAT O2 ABG 96 % (92-99)
--- NOTE | 2016-08-31 13:37 | RAD ---
CT head 08/31/2016 at 1322 hours Indication: Altered mental status, dysarthria Comparison: CT head 05/14/2016 Technique: Multiple noncontrast axial CT images of the head from the skull base to the vertex were obtained. Findings: Ventricles, sulci and basal cisterns are consistent with patient's age. No mass, mass effect or midline shift. No loss of the pavon-white matter differentiation. Basal ganglia structures appear normal. Posterior fossa is normal. There is no acute intracranial hemorrhage. Visualized orbits, paranasal sinuses and mastoid air cells are normal. Scalp and calvaria are normal. Impression: No acute intracranial hemorrhage. Findings were discussed with Dr. Dunn at 1:30 PM on 08/31/2016. PQRS Compliance Statement: One or more of the following individualized dose reduction techniques were utilized for this examination: 1. Automated exposure control 2. Adjustment of the mA and/or kV according to patient size 3. Use of iterative reconstruction technique
[2016-08-31 13:46] LABS: BACTERIA,URINE 0 /HPF (0-FEW); RBC,URINE OCC /HPF (0-2); WBC,URINE OCC /HPF (0-4)
[2016-08-31 13:59] LABS: BASO # 0.1 x10^3/uL (0.0-0.2); BASO % 1 % (0-3); EOS % 3 % (0-3); HEMATOCRIT 42.8 % (39.0-53.0); HEMOGLOBIN 14.7 g/dL (13.0-17.5); LYMPH # 1.8 x10^3/uL (1.0-4.8); LYMPH % 25 % (24-48); MEAN CORPUSCULAR HEMOGLOBIN 29 pg (25-35); MEAN CORPUSCULAR HGB CONC 34 g/dL (31-37); MEAN CORPUSCULAR VOLUME 84 fL (79-100); MONO % 7 % (0-9); NEUT % 64 % (31-73); PLATELET COUNT 222 x10^3/uL (140-400); RED CELL DISTRIBUTION WIDTH 13.4 % (11.5-14.5); WHITE BLOOD COUNT 7.4 x10^3/uL (4.0-11.0)
[2016-08-31 14:18] LABS: ALBUMIN 3.1 g/dL (3.4-5.0); ALBUMIN/GLOBULIN RATIO 0.8 (1.0-1.7); CALCIUM 9.4 mg/dL (8.5-10.1); CREATININE 1.3 mg/dL (0.7-1.3); GFR 59.4; TOTAL BILIRUBIN 0.6 mg/dL (0.2-1.0); TOTAL PROTEIN 6.8 g/dL (6.4-8.2)
--- NOTE | 2016-08-31 14:31 | ED.ADGEN ---
Past Medical History Past Medical History: Cancer, Diabetes-Type II, High Cholesterol, Hypertension Additional Past Medical Histor: Renal cancer 06/2012 - refused chemotherapy and radiation. hernia's Past Surgical History: Appendectomy, Cholecystectomy, Other Additional Past Surgical Histo: Left Nephrectomy Alcohol Use: Occasionally Drug Use: None Adult General Chief Complaint Chief Complaint: HYPERGLYCEMIA HPI HPI Patient is a 46 year old male with history of Type 2 insulin dependent diabetes who presents with altered mental status, decreased LOC with slurring of speech while at work. Symptom onset was one hour ago. Patient told family members that he was not feeling well prior to symptom onset. Blood sugar was checked by EMS and registered high. Patient did not take his insulin this morning. Patient was sounds on ED arrival with poor short-term memory recall and slurring of speech. Denies prescription pain medication, sleep aids, alcohol and drug abuse. Review of Systems Review of Systems ROS as per HPI. Current Medications Current Medications Current Medications Medications (Trade) Dose Ordered Sig/Mario Start Time Stop Time Status Last Admin Dose Admin Acetaminophen (Tylenol) 650 mg 1X ONCE 08/31/16 15:00 08/31/16 15:01 DC 08/31/16 14:56 650 MG Insulin Human Regular (NovoLIN R VIAL) 14 unit 1X ONCE 08/31/16 13:15 08/31/16 13:16 DC 08/31/16 13:58 14 UNIT Sodium Chloride 1,000 ml @ 1,000 mls/hr 1X ONCE 08/31/16 13:15 08/31/16 14:14 DC 08/31/16 13:59 1,000 MLS/HR Allergies Allergies Allergies Coded Allergies Type Severity Reaction Last Updated Verified Iodinated Contrast Media - Oral and Allergy Intermediate 04/06/15 Yes meperidine HCl Allergy Intermediate 04/06/15 Yes I S O L A T I O N *CONTACT* Allergy Unknown 05/15/16 Yes Physical Exam Physical Exam Constitutional: Well developed, well nourished, somnolent, alerts to verbal command. HENT: Normocephalic, atraumatic, bilateral external ears normal, oropharynx moist, no oral exudates, nose normal. Eyes: PERRL, EOMI, conjunctiva normal, no discharge. Neck: Normal range of motion, no tenderness, supple, no stridor. Cardiovascular:Heart rate regular rhythm, no murmur. Lungs & Thorax: Bilateral breath sounds clear to auscultation. Abdomen: Bowel sounds normal, soft, no tenderness. Skin: Warm, dry. Back: No tenderness. Extremities: No tenderness, Neurologic: Somnolent, slurring of speech, cranial nerves otherwise intact, no focal extremity weakness or loss of sensation. Psychologic: Affect normal, judgement normal, mood normal. Current Patient Data Vital Signs Vital Signs Date Time Temp Pulse Resp B/P (MAP) Pulse Ox O2 Delivery O2 Flow Rate FiO2 08/31/16 13:35 Room Air 08/31/16 13:05 97.8 80 23 149/82 (104) 100 97.8 Lab Values Laboratory Tests Test 08/31/16 13:04 08/31/16 13:20 08/31/16 13:50 08/31/16 14:56 O2 Saturation 96 % (92-99) Arterial Blood pH 7.41 (7.35-7.45) Arterial Blood pCO2 at Patient Temp 38 mmHg (35-46) Arterial Blood pO2 at Patient Temp 83 mmHg (75-108) Arterial Blood HCO3 23 mmol/L (21-28) Arterial Blood Base Excess -1 mmol/L (-3-3) FiO2 21.0 Urine Collection Type Unknown Urine Color Yellow Urine Clarity Clear Urine pH 6.5 Urine Specific [place] >=1.030 Urine Protein Negative mg/dL (NEG-TRACE) Urine Glucose (UA) >=1000 mg/dL (NEG) Urine Ketones (Stick) Negative mg/dL (NEG) Urine Blood Negative (NEG) Urine Nitrite Negative (NEG) Urine Bilirubin Negative (NEG) Urine Urobilinogen Dipstick 0.2 mg/dL (0.2 mg/dL) Urine Leukocyte Esterase Negative (NEG) Urine RBC Occ /HPF (0-2) Urine WBC Occ /HPF (0-4) Urine Bacteria 0 /HPF (0-FEW) Urine Opiates Screen Neg (NEG) Urine Methadone Screen Neg (NEG) Urine Barbiturates Neg (NEG) Urine Phencyclidine Screen Neg (NEG) Urine Amphetamine/Methamphetamine Neg (NEG) Urine Benzodiazepines Screen Neg (NEG) Urine Cocaine Screen Neg (NEG) Urine Cannabinoids Screen Neg (NEG) Urine Ethyl Alcohol Neg (NEG) White Blood Count 7.4 x10^3/uL (4.0-11.0) Red Blood Count 5.10 x10^6/uL (4.30-5.70) Hemoglobin 14.7 g/dL (13.0-17.5) Hematocrit 42.8 % (39.0-53.0) Mean Corpuscular Volume 84 fL (79-100) Mean Corpuscular Hemoglobin 29 pg (25-35) Mean Corpuscular Hemoglobin Concent 34 g/dL (31-37) Red Cell Distribution Width 13.4 % (11.5-14.5) Platelet Count 222 x10^3/uL (140-400) Neutrophils (%) (Auto) 64 % (31-73) Lymphocytes (%) (Auto) 25 % (24-48) Monocytes (%) (Auto) 7 % (0-9) Eosinophils (%) (Auto) 3 % (0-3) Basophils (%) (Auto) 1 % (0-3) Neutrophils # (Auto) 4.8 x10^3uL (1.8-7.7) Lymphocytes # (Auto) 1.8 x10^3/uL (1.0-4.8) Monocytes # (Auto) 0.5 x10^3/uL (0.0-1.1) Eosinophils # (Auto) 0.2 x10^3/uL (0.0-0.7) Basophils # (Auto) 0.1 x10^3/uL (0.0-0.2) Sodium Level 129 mmol/L (136-145) L Potassium Level 4.0 mmol/L (3.5-5.1) Chloride Level 96 mmol/L (98-107) L Carbon Dioxide Level 24 mmol/L (21-32) Anion Gap 9 (6-14) Blood Urea Nitrogen 12 mg/dL (8-26) Creatinine 1.3 mg/dL (0.7-1.3) Estimated GFR (Cockcroft-Gault) 59.4 BUN/Creatinine Ratio 9 (6-20) Glucose Level 681 mg/dL (70-99) *H Calcium Level 9.4 mg/dL (8.5-10.1) Total Bilirubin 0.6 mg/dL (0.2-1.0) Aspartate Amino Transferase (AST) 24 U/L (15-37) Alanine Aminotransferase (ALT) 47 U/L (16-63) Alkaline Phosphatase 91 U/L (46-116) Ammonia 22 mcmol/L (11-34) Total Protein 6.8 g/dL (6.4-8.2) Albumin 3.1 g/dL (3.4-5.0) L Albumin/Globulin Ratio 0.8 (1.0-1.7) L Thyroid Stimulating Hormone (TSH) 1.277 uIU/mL (0.358-3.74) Ethyl Alcohol Level < 10 mg/dL (0-10) Acetone Level Neg (NEG) Glucose (Fingerstick) 525 mg/dL (70-99) *H Laboratory Tests 08/31/16 13:50 Laboratory Tests 08/31/16 13:50 EKG EKG ] Radiology/Procedures Radiology/Procedures [CT head: No acute intracranial disease per radiology report.] Course & Med Decision Making Course & Med Decision Making Pertinent Labs and Imaging studies reviewed. (See chart for details) [Patient with decreased LOC, GCS of 13 on ED arrival. Blood sugar greater than 600. Upon further questioning, patient's been noncompliant with insulin for several days. He t denies drugs and alcohol, prescription medication overuse. Patient is not any focal deficits on neurologic exam. CT head negative. Concern for possible for possible hyperosmolar hyperglycemic state versus polypharmacy. UDS and Etoh are negative. IV fluids, and insulin given. No change mental status during stay. Will admit to the hospital service for further evaluation and treatment. ] Dragon Disclaimer Dragon Disclaimer This electronic medical record was generated, in whole or in part, using a voice recognition dictation system. REAL DUARTE DO Aug 31, 2016 14:31
[2016-08-31] MEDS ORDERED: ACETAMINOPHEN 325 MG TABLET. PO ONE (15:00)
--- NOTE | 2016-08-31 15:21 | ACF ---
Admit Criteria Forms Admit Criteria Forms Admit Criteria Forms DIABETES Clinical Indications for Admission to Inpatient Care (Place 'X' for any and all applicable criteria): Admission is indicated by presence of ALL (if I & II) or ANY ONE (if III or IV) of the following (1)(2)(3)(4): [ ]I. Diabetes is uncontrolled as indicated by ANY ONE of the following: [ ]a) Diabetic ketoacidosis as indicated by ALL of the following (8): [ ]i) Hyperglycemia (eg, plasma glucose greater than 200 mg/ dL (11.1 mmol/L)) [ ]ii) Acidosis (eg, arterial pH less than 7.30, serum bicarbonate level less than 15 mEq/L (mmol/L)) [ ]iii) Moderate ketonuria or ketonemia [ ]b) Hyperglycemic hyperosmolar state as indicated by ALL of the following(9)(10): [ ]i) Neurologic dysfunction (eg, stupor, coma, hemiparesis , seizure)(13) [ ]ii) Plasma glucose greater than 600 mg/dL (33.3 mmol/L) [ ]iii) Serum osmolality greater than 320 mOsm/kg (mmol/kg) [ X]c) Severe signs or symptoms secondary to hyperglycemia indicated by ANY ONE of the following: [X ]i) Altered mental status(10) [ ]ii) Significant hypovolemia or dehydration [ ]iii) Intractable nausea or vomiting [ ]iv) Unexplained fever or severe infection [ ]v) Severe electrolyte abnormality (eg, hypokalemia, hyperkalemia, hypernatremia) [ ]II. Management at other levels of care (Also use Diabetes: Observation Care as appropriate) is not feasible because of ANY ONE of the following: [ ]a) Condition was not adequately corrected with treatment at other levels of care. [ ]b) Treatment at other levels of care is not appropriate because of condition severity (eg, hyperosmolar coma). [ ]III. Contraindications and/or Inappropriate clinical situations for Observational Care in patients with Diabetes, when ANY ONE of the following is required: [ ]a) Patient require specific diagnostic workup or therapeutic intervention 22 [ ]b) Patient with abnormal vital signs or altered mental status 23 [ ]IV. General contraindications and/or Inappropriate clinical situations for Observational Care in patients with Diabetes, when ANY ONE of the following is required: [ ]a) Prediction of prolongation of LOS based on ANY ONE of the following may be considered as a contraindication for observational care 2, 3, 4, 5, 6, 7, 8, 9, 10, 11 [ ]i) Age > 65 yrs. [ ]ii) Patient arriving by ambulance [ ]iii) Patient with high acuity [ ]iv) Patient requiring vital sign monitoring [ ]v) Patient on IV medication [ ]b) Systolic blood pressures 180mmHg 3,12 [ ]c) Patient with altered mental status including delirium and other alteration of consciousness, (3) [ ]d) Patient whose discharge disposition will be to a detention home or rehabilitation home should not be managed in Emergency Department Observation Unit. CMS rule requires 3 days hospital stay before such placement.3,13 [ ]e) Patient with failure to thrive due to broad array of etiologies 3,16,17 [ ]f) Inability to ambulate 3,14 Extended stay beyond goal length of stay may be needed for(3)(20): [ ]a) Treatment of precipitating causes [ ]b) Development of hypoglycemia [ ]c) Complications of treatment [ ]d) Complications of decompensated diabetes (eg, acute gastric dilatation, persistent metabolic or neurologic derangement) [ ]e) Active Comorbidities [ ]f) Older patients( 65 years or older) The original [employer] content created by [employer] has been revised. The portions of the content which have been revised are identified through the use of italic text or in bold,and [facility] has neither reviewed nor approved the modified material. All other unmodified content is copyright [employer] [facility] [employer]. Please see references footnoted in the original [employer] [facility] edition 2016 PERRY HAYS Aug 31, 2016 15:21
[2016-08-31] MEDS ORDERED: INSULIN,REGULAR 150 UNIT DRIP 150 ML IV ONE (15:30)
[2016-08-31] MEDS ORDERED: INSULIN REGULAR VIAL 150 UNIT in 0.9 % SODIUM CHLORIDE 150ML 150 ML IV PRN (15:30)
--- NOTE | 2016-08-31 16:35 | PDOC1 ---
History and Physical Date of Admission Date of Admission 08/31/2016 4:20 PM Identification/Chief Complaint Chief Complaint Confusion and hyperglycemia Problems: Source Source: Caregiver, Chart review, Patient History of Present Illness History of Present Illness A 46-year-old male patient with prior history of type 2 diabetes mellitus and peripheral neuropathy present to the ER by EMS with complaints of altered mental status and slurring off speech started today. This morning, before he went to work he complained to the family members saying that he is not feeling well, on site EMS recorded high blood sugars, and in the ER patient's blood sugars were more than 500s. At the time of present presentation he is confused with slurring of speech as per fianc whenever he has a high blood sugars he presents like this. As per family, patient did not take his insulin this morning and also not able to verify the doses. Patient is alert, able to following commands with delay in his ounces and slurring of speech, he's not able to recall date and place but he knew that he is in [place]. Past Medical History Past Medical History Past Medical History: Cancer, Diabetes-Type II, High Cholesterol, Hypertension Renal cancer 06/2012 - refused chemotherapy and radiation. hernia's Past Surgical History: Appendectomy, Cholecystectomy,Left Nephrectomy Cardiovascular: HTN Pulmonary: Other CENTRAL NERVOUS SYSTEM: Periperal neuropathy GI: No pertinent hx Heme/Onc: No pertinent hx, Cancer Hepatobiliary: No pertinent hx Psych: No pertinent hx Renal/: Renal Ca. Endocrine: Diabetes Past Surgical History Past Surgical History: Cholecystectomy, Hernia Repair, Tonsillectomy, Other Family History Family History: No Significant, Other (hypertension) Social History Smoke: No ALCOHOL: rare Drugs: None Current Medications Current Medications Current Medications Medications (Trade) Dose Ordered Sig/Mario Start Time Stop Time Status Last Admin Dose Admin Acetaminophen (Tylenol) 650 mg 1X ONCE 08/31/16 15:00 08/31/16 15:01 DC 08/31/16 14:56 650 MG Insulin Human Regular 150 ml @ 0 mls/hr 1X ONCE 08/31/16 15:30 08/31/16 15:31 DC Insulin Human Regular (NovoLIN R VIAL) 14 unit 1X ONCE 08/31/16 13:15 08/31/16 13:16 DC 08/31/16 13:58 14 UNIT Insulin Human Regular 150 unit/ Sodium Chloride 151.5 ml @ 0 mls/hr CONT PRN 08/31/16 15:30 Sodium Chloride 1,000 ml @ 200 mls/hr 1X ONCE 08/31/16 15:30 08/31/16 20:29 Allergies Allergies Allergies Coded Allergies Type Severity Reaction Last Updated Verified Iodinated Contrast Media - Oral and Allergy Intermediate 04/06/15 Yes meperidine HCl Allergy Intermediate 04/06/15 Yes I S O L A T I O N *CONTACT* Allergy Unknown 05/15/16 Yes ROS Review of System Review of systems is limited due to patient's inability to provide good history , old records are reviewed especially addition to some recent H&P's case discussed with jacques at bedside Physical Exam Physical Exam GEN.: No apparent distress. Alert, confused sloughing of speech continuously trying to pick his skin, obese HEENT: Head is normocephalic, atraumatic NECK: Supple. No JVD LUNGS: Clear to auscultation. Normal air entry HEART: RRR, S1, S2 present. Peripheral pulses intact ABDOMEN: Soft, nontender. Positive bowel sounds. EXTREMITIES: Without any cyanosis. NEUROLOGIC: Normal speech, normal tone PSYCHIATRIC: Normal affect, normal mood. SKIN: Small macular rash on lower extremities Vitals Vitals Vital Signs Date Time Temp Pulse Resp B/P (MAP) Pulse Ox O2 Delivery O2 Flow Rate FiO2 08/31/16 13:35 Room Air 08/31/16 13:05 97.8 80 23 149/82 (104) 100 97.8 Labs Labs Laboratory Tests Test 08/31/16 13:04 08/31/16 13:20 08/31/16 13:50 08/31/16 14:56 O2 Saturation 96 % (92-99) Arterial Blood pH 7.41 (7.35-7.45) Arterial Blood pCO2 at Patient Temp 38 mmHg (35-46) Arterial Blood pO2 at Patient Temp 83 mmHg (75-108) Arterial Blood HCO3 23 mmol/L (21-28) Arterial Blood Base Excess -1 mmol/L (-3-3) FiO2 21.0 Urine Collection Type Unknown Urine Color Yellow Urine Clarity Clear Urine pH 6.5 Urine Specific [place] >=1.030 Urine Protein Negative mg/dL (NEG-TRACE) Urine Glucose (UA) >=1000 mg/dL (NEG) Urine Ketones (Stick) Negative mg/dL (NEG) Urine Blood Negative (NEG) Urine Nitrite Negative (NEG) Urine Bilirubin Negative (NEG) Urine Urobilinogen Dipstick 0.2 mg/dL (0.2 mg/dL) Urine Leukocyte Esterase Negative (NEG) Urine RBC Occ /HPF (0-2) Urine WBC Occ /HPF (0-4) Urine Bacteria 0 /HPF (0-FEW) Urine Opiates Screen Neg (NEG) Urine Methadone Screen Neg (NEG) Urine Barbiturates Neg (NEG) Urine Phencyclidine Screen Neg (NEG) Urine Amphetamine/Methamphetamine Neg (NEG) Urine Benzodiazepines Screen Neg (NEG) Urine Cocaine Screen Neg (NEG) Urine Cannabinoids Screen Neg (NEG) Urine Ethyl Alcohol Neg (NEG) White Blood Count 7.4 x10^3/uL (4.0-11.0) Red Blood Count 5.10 x10^6/uL (4.30-5.70) Hemoglobin 14.7 g/dL (13.0-17.5) Hematocrit 42.8 % (39.0-53.0) Mean Corpuscular Volume 84 fL (79-100) Mean Corpuscular Hemoglobin 29 pg (25-35) Mean Corpuscular Hemoglobin Concent 34 g/dL (31-37) Red Cell Distribution Width 13.4 % (11.5-14.5) Platelet Count 222 x10^3/uL (140-400) Neutrophils (%) (Auto) 64 % (31-73) Lymphocytes (%) (Auto) 25 % (24-48) Monocytes (%) (Auto) 7 % (0-9) Eosinophils (%) (Auto) 3 % (0-3) Basophils (%) (Auto) 1 % (0-3) Neutrophils # (Auto) 4.8 x10^3uL (1.8-7.7) Lymphocytes # (Auto) 1.8 x10^3/uL (1.0-4.8) Monocytes # (Auto) 0.5 x10^3/uL (0.0-1.1) Eosinophils # (Auto) 0.2 x10^3/uL (0.0-0.7) Basophils # (Auto) 0.1 x10^3/uL (0.0-0.2) Sodium Level 129 mmol/L (136-145) Potassium Level 4.0 mmol/L (3.5-5.1) Chloride Level 96 mmol/L (98-107) Carbon Dioxide Level 24 mmol/L (21-32) Anion Gap 9 (6-14) Blood Urea Nitrogen 12 mg/dL (8-26) Creatinine 1.3 mg/dL (0.7-1.3) Estimated GFR (Cockcroft-Gault) 59.4 BUN/Creatinine Ratio 9 (6-20) Glucose Level 681 mg/dL (70-99) Serum Osmolality 304 mOsm/Kg (279-304) Calcium Level 9.4 mg/dL (8.5-10.1) Total Bilirubin 0.6 mg/dL (0.2-1.0) Aspartate Amino Transf (AST/SGOT) 24 U/L (15-37) Alanine Aminotransferase (ALT/SGPT) 47 U/L (16-63) Alkaline Phosphatase 91 U/L (46-116) Ammonia 22 mcmol/L (11-34) Troponin I Quantitative < 0.017 ng/mL (0.000-0.055) Total Protein 6.8 g/dL (6.4-8.2) Albumin 3.1 g/dL (3.4-5.0) Albumin/Globulin Ratio 0.8 (1.0-1.7) Thyroid Stimulating Hormone (TSH) 1.277 uIU/mL (0.358-3.74) Ethyl Alcohol Level < 10 mg/dL (0-10) Acetone Level Neg (NEG) Glucose (Fingerstick) 525 mg/dL (70-99) Test 08/31/16 16:11 Glucose (Fingerstick) 383 mg/dL (70-99) Laboratory Tests Test 08/31/16 13:04 08/31/16 13:20 08/31/16 13:50 08/31/16 14:56 O2 Saturation 96 % (92-99) Arterial Blood pH 7.41 (7.35-7.45) Arterial Blood pCO2 at Patient Temp 38 mmHg (35-46) Arterial Blood pO2 at Patient Temp 83 mmHg (75-108) Arterial Blood HCO3 23 mmol/L (21-28) Arterial Blood Base Excess -1 mmol/L (-3-3) FiO2 21.0 Urine Collection Type Unknown Urine Color Yellow Urine Clarity Clear Urine pH 6.5 Urine Specific [place] >=1.030 Urine Protein Negative mg/dL (NEG-TRACE) Urine Glucose (UA) >=1000 mg/dL (NEG) Urine Ketones (Stick) Negative mg/dL (NEG) Urine Blood Negative (NEG) Urine Nitrite Negative (NEG) Urine Bilirubin Negative (NEG) Urine Urobilinogen Dipstick 0.2 mg/dL (0.2 mg/dL) Urine Leukocyte Esterase Negative (NEG) Urine RBC Occ /HPF (0-2) Urine WBC Occ /HPF (0-4) Urine Bacteria 0 /HPF (0-FEW) Urine Opiates Screen Neg (NEG) Urine Methadone Screen Neg (NEG) Urine Barbiturates Neg (NEG) Urine Phencyclidine Screen Neg (NEG) Urine Amphetamine/Methamphetamine Neg (NEG) Urine Benzodiazepines Screen Neg (NEG) Urine Cocaine Screen Neg (NEG) Urine Cannabinoids Screen Neg (NEG) Urine Ethyl Alcohol Neg (NEG) White Blood Count 7.4 x10^3/uL (4.0-11.0) Red Blood Count 5.10 x10^6/uL (4.30-5.70) Hemoglobin 14.7 g/dL (13.0-17.5) Hematocrit 42.8 % (39.0-53.0) Mean Corpuscular Volume 84 fL (79-100) Mean Corpuscular Hemoglobin 29 pg (25-35) Mean Corpuscular Hemoglobin Concent 34 g/dL (31-37) Red Cell Distribution Width 13.4 % (11.5-14.5) Platelet Count 222 x10^3/uL (140-400) Neutrophils (%) (Auto) 64 % (31-73) Lymphocytes (%) (Auto) 25 % (24-48) Monocytes (%) (Auto) 7 % (0-9) Eosinophils (%) (Auto) 3 % (0-3) Basophils (%) (Auto) 1 % (0-3) Neutrophils # (Auto) 4.8 x10^3uL (1.8-7.7) Lymphocytes # (Auto) 1.8 x10^3/uL (1.0-4.8) Monocytes # (Auto) 0.5 x10^3/uL (0.0-1.1) Eosinophils # (Auto) 0.2 x10^3/uL (0.0-0.7) Basophils # (Auto) 0.1 x10^3/uL (0.0-0.2) Sodium Level 129 mmol/L (136-145) Potassium Level 4.0 mmol/L (3.5-5.1) Chloride Level 96 mmol/L (98-107) Carbon Dioxide Level 24 mmol/L (21-32) Anion Gap 9 (6-14) Blood Urea Nitrogen 12 mg/dL (8-26) Creatinine 1.3 mg/dL (0.7-1.3) Estimated GFR (Cockcroft-Gault) 59.4 BUN/Creatinine Ratio 9 (6-20) Glucose Level 681 mg/dL (70-99) Serum Osmolality 304 mOsm/Kg (279-304) Calcium Level 9.4 mg/dL (8.5-10.1) Total Bilirubin 0.6 mg/dL (0.2-1.0) Aspartate Amino Transf (AST/SGOT) 24 U/L (15-37) Alanine Aminotransferase (ALT/SGPT) 47 U/L (16-63) Alkaline Phosphatase 91 U/L (46-116) Ammonia 22 mcmol/L (11-34) Troponin I Quantitative < 0.017 ng/mL (0.000-0.055) Total Protein 6.8 g/dL (6.4-8.2) Albumin 3.1 g/dL (3.4-5.0) Albumin/Globulin Ratio 0.8 (1.0-1.7) Thyroid Stimulating Hormone (TSH) 1.277 uIU/mL (0.358-3.74) Ethyl Alcohol Level < 10 mg/dL (0-10) Acetone Level Neg (NEG) Glucose (Fingerstick) 525 mg/dL (70-99) Test 08/31/16 16:11 Glucose (Fingerstick) 383 mg/dL (70-99) VTE Prophylaxis Ordered VTE Prophylaxis Devices: Yes VTE Pharmacological Prophylaxi: Yes Assessment/Plan Assessment/Plan Confusion/altered mental status likely due to hyperglycemia, CT head and urine drug screen negative for acute findings. Uncontrolled type 2 diabetes mellitus without ketosis Hyponatremia due to hyperglycemia Sever dehydration Morbid obesity BMI of 40.9 Hypertension Hyperlipidemia Plan Continue IV hydration with normal saline at 150 mL per hour, he received 2 L in the ER, at the time of examination patient is still confused with slurring of speech but no obvious motor deficits seen. Start Humulin insulin drip, admit patient to critical care unit, monitor blood sugars and BMP periodically. Jacques not able to forward his home medications, will verify with the pharmacy. If patient's symptoms do not improve with the control of blood sugars consider consultation with neurology. Monitor sodium/BMP CBC in a.m. When necessary hydralazine for hypertension Prognosis guarded, All other chronic problems in stable condition Multiple admissions for similar complaints, I'll consult social service technician for further help. Case discussed with the ER attending. Old records reviewed. AUGUSTO FOX MD Aug 31, 2016 16:35
[2016-08-31] MEDS: IV NORMAL SALINE 1000ML BAG 1,000 ML IV SCH ×2 (17:29→21:35)
[2016-08-31 20:09] LABS: BASO # 0.1 x10^3/uL (0.0-0.2); BASO % 1 % (0-3); EOS % 4 % (0-3); HEMATOCRIT 41.5 % (39.0-53.0); HEMOGLOBIN 14.5 g/dL (13.0-17.5); LYMPH # 3.1 x10^3/uL (1.0-4.8); LYMPH % 36 % (24-48); MEAN CORPUSCULAR HEMOGLOBIN 29 pg (25-35); MEAN CORPUSCULAR HGB CONC 35 g/dL (31-37); MEAN CORPUSCULAR VOLUME 82 fL (79-100); MONO % 8 % (0-9); NEUT % 52 % (31-73); PLATELET COUNT 232 x10^3/uL (140-400); RED BLOOD COUNT 5.05 x10^6/uL (4.30-5.70); RED CELL DISTRIBUTION WIDTH 13.3 % (11.5-14.5); WHITE BLOOD COUNT 8.6 x10^3/uL (4.0-11.0)
[2016-08-31 20:21] LABS: CREATININE 0.9 mg/dL (0.7-1.3); GFR 90.8; POTASSIUM 3.5 mmol/L (3.5-5.1)
[2016-08-31 20:27] LABS: ALBUMIN/GLOBULIN RATIO 0.9 (1.0-1.7); TOTAL BILIRUBIN 0.7 mg/dL (0.2-1.0); TOTAL PROTEIN 6.4 g/dL (6.4-8.2)
[2016-08-31] MEDS: POTASSIUM CHLORIDE 10MEQ 100 ML IV SCH ×2 (20:54→22:18)
[2016-08-31] MEDS ORDERED: ASPIRIN 300 MG SUPP.RECT PR ONE (21:15)
[2016-09-01] VITALS (22 sets, daily range): BP systolic 111–166; BP diastolic 61–108
[2016-09-01] MEDS: IV NORMAL SALINE 1000ML BAG 1,000 ML IV SCH ×2 (05:36→12:38)
[2016-09-01 06:01] LABS: BASO # 0.1 x10^3/uL (0.0-0.2); BASO % 1 % (0-3); EOS % 4 % (0-3); HEMATOCRIT 37.9 % (39.0-53.0); HEMOGLOBIN 13.6 g/dL (13.0-17.5); LYMPH # 2.5 x10^3/uL (1.0-4.8); LYMPH % 35 % (24-48); MEAN CORPUSCULAR HEMOGLOBIN 29 pg (25-35); MEAN CORPUSCULAR HGB CONC 36 g/dL (31-37); MEAN CORPUSCULAR VOLUME 82 fL (79-100); MONO % 7 % (0-9); NEUT % 53 % (31-73); PLATELET COUNT 214 x10^3/uL (140-400); RED BLOOD COUNT 4.65 x10^6/uL (4.30-5.70); RED CELL DISTRIBUTION WIDTH 13.3 % (11.5-14.5)
[2016-09-01 06:16] LABS: ALBUMIN 2.7 g/dL (3.4-5.0); CREATININE 0.9 mg/dL (0.7-1.3); GFR 90.8; MAGNESIUM 1.9 mg/dL (1.8-2.4); POTASSIUM 3.5 mmol/L (3.5-5.1); TOTAL BILIRUBIN 0.7 mg/dL (0.2-1.0); TOTAL PROTEIN 5.3 g/dL (6.4-8.2)
[2016-09-01] MEDS: POTASSIUM CHLORIDE 10MEQ 100 ML IV SCH ×2 (07:11→08:22)
[2016-09-01 08:19] LABS: CHOLESTEROL/HDL RATIO 4.9
--- NOTE | 2016-09-01 11:46 | PDOC2 ---
NEUROLOGY CONSULT Date of Admission Date of Admission DATE: 09/01/16 TIME: 11:26 Reason for Consult Reason for Consult: IMPRESSION: MS changes. Hyperglycemia, glucose 681 Metabolic encephalopathy. Slurred speech Left side weakness. DM HTN HLD Cancer, left renal Peripheral neuropathy. Obesity. RECOMMENDATIONS/PLAN: Control hyperglycemia. Treat medical diseases. ASA 325 mg daily, started on 08/31/16. Brain MRI. Echo. Carotid A US + Doppler Lab: see orders. EEG OT/PT HISTORY OF THE PRESENT ILLNESS: 46-y-old male patient with above medical diseases had mental status changes, slurred speech, generalized weakness, cognitive impairment noted at work on 08/31/16. She did not take insulin that am. He was brought to the ER of [facility] and he was found to have hyperglycemia and his glucose level was 681. He was admitted into ICU, and was noted left side mildly weaker than right side. ASA was admitted right away and further management were administrated. PAST MEDICAL HISTORY: Please see above. PAST SURGERY HISTORY: Tonsillectomy Cholecystectomy Hernia Repair Left nephrectomy for cancer. ALLERGY: Reviewed. MEDICATIONS: Refer to [facility] FAMILY HISTORY: Non contributory. SOCIAL HISTORY: Lives at home. Denies smoking and illicit drug use. He drinks alcohol occasionally. REVIEW OF SYSTEMS: Constitutional: No malnutrition, weight loss, cachexia. Head: No traumatic brain or head injury. Skin: No edema, or rash. Ear: No infection, tinnitus. Eyes: No vision loss or color blindness. Nose: No bleeding or purulent discharges. Hearing: No hearing decrease. Neck: No injury. Cardiac: HTN, HLD. Pulmonary: No COPD. GI: No GI ulcer, GI bleeding. Urinary/genital: left kidney cancer s/p nephrectomy. He dannielle reportedly declined chemo and radiation therapy. Endocrinologic: Diabetes Mellitus, obesity. Skeletomuscular: No muscular atrophy, deformity. Neurological: see HP. Psychiatric: Denies drug use/abuse. Otherwise, not [id number] review of systems. PHYSICAL EXAMINATION: General appearance is in acute distress. HEENT: Normocephalic and nontraumatic. Eyes, nose, ears, and throat are unremarkable. Neck is supple. No lymphadenopathy. No bruits are heard over the carotid artery. No crepitus. Cardiovascular: S1, S2, regular rate and rhythm. Pulmonary: Mildly decreased to auscultation bilaterally. Abdomen: Bowel sounds are positive. Extremities: No rash, lesions, or edema. No restriction of range of motion NEUROLOGICAL EXAMINATION: Awake from time to time. Not oriented to time and place and not sure if he is oriented to person. PERRL. EOMI. CN: no focal findings. Muscle tone: within normal. Muscle strength: 4+ left side, 5 right side. DTR: 1-2 Plantar reflex: Flexor response bilaterally Gait: not examined in bed. Sensory exam: no abnormal findings. No acute cerebellar signs elicited. F-T-N test not performed due to decreased mental status.. Current Medications Current Medications Current Medications Sodium Chloride 1,000 ml @ 1,000 mls/hr 1X ONCE IV Last administered on 13:59; Start 08/31/16 at 13:15; Stop 08/31/16 at 14:14; Status DC Sodium Chloride 1,000 ml @ 1,000 mls/hr 1X ONCE IV Last administered on 13:59; Start 08/31/16 at 13:15; Stop 08/31/16 at 14:14; Status DC Insulin Human Regular (NovoLIN R VIAL) 14 unit 1X ONCE SQ Last administered on 08/31/16 13:58; Start 08/31/16 at 13:15; Stop 08/31/16 at 13:16; Status DC Acetaminophen (Tylenol) 650 mg 1X ONCE PO Last administered on 08/31/16 14:56 ; Start 08/31/16 at 15:00; Stop 08/31/16 at 15:01; Status DC Insulin Human Regular 150 unit/ Sodium Chloride 151.5 ml @ 0 mls/hr CONT PRN IV SEE I/O RECORD; Start 08/31/16 at 15:30 Insulin Human Regular 150 ml @ 0 mls/hr 1X ONCE IV Last administered on 17:26; Start 08/31/16 at 15:30; Stop 08/31/16 at 15:31; Status DC Sodium Chloride 1,000 ml @ 200 mls/hr 1X ONCE IV ; Start 08/31/16 at 15:30; Stop 08/31/16 at 17:24; Status DC Sodium Chloride 1,000 ml @ 250 mls/hr Q4H IV Last administered on 09/01/16 05 :36; Start 08/31/16 at 17:00; Stop 09/01/16 at 16:59 Sodium Chloride 1,000 ml @ 1,000 mls/hr 1X ONCE IV Last administered on 17:28; Start 08/31/16 at 17:30; Stop 08/31/16 at 18:29; Status DC Potassium Chloride 100 ml @ 100 mls/hr Q1H IV Last administered on 08/31/16 22:18; Start 08/31/16 at 21:00; Stop 08/31/16 at 22:59; Status DC Aspirin (Aspirin) 300 mg 1X ONCE NM Last administered on 08/31/16 21:35; Start 08/31/16 at 21:15; Stop 08/31/16 at 21:16; Status DC Potassium Chloride 100 ml @ 100 mls/hr Q1H IV Last administered on 09/01/16 08:22; Start 09/01/16 at 06:30; Stop 09/01/16 at 08:29; Status DC Active Scripts Active Zofran (Ondansetron Hcl) 4 Mg Tablet 4 Mg PO BID PRN Tessalon Perle (Benzonatate) 100 Mg Capsule 100 Mg PO TID PRN Levemir Flextouch (Insulin Detemir) 100 Unit/1 Ml Insuln.pen 120 Units SQ BID 30 Days Novolog Flexpen (Insulin Aspart) 100 Unit/1 Ml Insuln.pen 60 Units SQ TIDAC 30 Days Reported Lisinopril 5 Mg Tablet 1 Tab PO DAILY [Atorvastatin] 25 Mg PO DAILY Gabapentin 100 Mg Capsule 1,000 Mg PO TID Metformin Hcl 500 Mg Tablet 2 Tab PO HS Metformin Hcl 500 Mg Tablet 2 Tab PO DAILY08 Nystatin 15 Gm Powder 1 Martha TP BID Allergies Allergies: Coded Allergies: Iodinated Contrast Media - Oral and (Verified Allergy, Intermediate, ) meperidine HCl (Verified Allergy, Intermediate, 04/06/15) I S O L A T I O N *CONTACT* (Verified Allergy, Unknown, 05/15/16) +MRSA abscess 04/06/2009 Vitals VITALS Vital Signs Date Time Temp Pulse Resp B/P (MAP) Pulse Ox O2 Delivery O2 Flow Rate FiO2 09/01/16 09:00 63 12 129/79 (96) 98 Room Air 09/01/16 08:00 98.5 98.5 Labs Labs Laboratory Tests Test 08/31/16 13:04 08/31/16 13:20 08/31/16 13:50 08/31/16 14:56 O2 Saturation 96 % (92-99) Arterial Blood pH 7.41 (7.35-7.45) Arterial Blood pCO2 at Patient Temp 38 mmHg (35-46) Arterial Blood pO2 at Patient Temp 83 mmHg (75-108) Arterial Blood HCO3 23 mmol/L (21-28) Arterial Blood Base Excess -1 mmol/L (-3-3) FiO2 21.0 Urine Collection Type Unknown Urine Color Yellow Urine Clarity Clear Urine pH 6.5 Urine Specific [place] >=1.030 Urine Protein Negative mg/dL (NEG-TRACE) Urine Glucose (UA) >=1000 mg/dL (NEG) Urine Ketones (Stick) Negative mg/dL (NEG) Urine Blood Negative (NEG) Urine Nitrite Negative (NEG) Urine Bilirubin Negative (NEG) Urine Urobilinogen Dipstick 0.2 mg/dL (0.2 mg/dL) Urine Leukocyte Esterase Negative (NEG) Urine RBC Occ /HPF (0-2) Urine WBC Occ /HPF (0-4) Urine Bacteria 0 /HPF (0-FEW) Urine Opiates Screen Neg (NEG) Urine Methadone Screen Neg (NEG) Urine Barbiturates Neg (NEG) Urine Phencyclidine Screen Neg (NEG) Urine Amphetamine/Methamphetamine Neg (NEG) Urine Benzodiazepines Screen Neg (NEG) Urine Cocaine Screen Neg (NEG) Urine Cannabinoids Screen Neg (NEG) Urine Ethyl Alcohol Neg (NEG) White Blood Count 7.4 x10^3/uL (4.0-11.0) Red Blood Count 5.10 x10^6/uL (4.30-5.70) Hemoglobin 14.7 g/dL (13.0-17.5) Hematocrit 42.8 % (39.0-53.0) Mean Corpuscular Volume 84 fL (79-100) Mean Corpuscular Hemoglobin 29 pg (25-35) Mean Corpuscular Hemoglobin Concent 34 g/dL (31-37) Red Cell Distribution Width 13.4 % (11.5-14.5) Platelet Count 222 x10^3/uL (140-400) Neutrophils (%) (Auto) 64 % (31-73) Lymphocytes (%) (Auto) 25 % (24-48) Monocytes (%) (Auto) 7 % (0-9) Eosinophils (%) (Auto) 3 % (0-3) Basophils (%) (Auto) 1 % (0-3) Neutrophils # (Auto) 4.8 x10^3uL (1.8-7.7) Lymphocytes # (Auto) 1.8 x10^3/uL (1.0-4.8) Monocytes # (Auto) 0.5 x10^3/uL (0.0-1.1) Eosinophils # (Auto) 0.2 x10^3/uL (0.0-0.7) Basophils # (Auto) 0.1 x10^3/uL (0.0-0.2) Sodium Level 129 mmol/L (136-145) Potassium Level 4.0 mmol/L (3.5-5.1) Chloride Level 96 mmol/L (98-107) Carbon Dioxide Level 24 mmol/L (21-32) Anion Gap 9 (6-14) Blood Urea Nitrogen 12 mg/dL (8-26) Creatinine 1.3 mg/dL (0.7-1.3) Estimated GFR (Cockcroft-Gault) 59.4 BUN/Creatinine Ratio 9 (6-20) Glucose Level 681 mg/dL (70-99) Serum Osmolality 304 mOsm/Kg (279-304) Calcium Level 9.4 mg/dL (8.5-10.1) Total Bilirubin 0.6 mg/dL (0.2-1.0) Aspartate Amino Transf (AST/SGOT) 24 U/L (15-37) Alanine Aminotransferase (ALT/SGPT) 47 U/L (16-63) Alkaline Phosphatase 91 U/L (46-116) Ammonia 22 mcmol/L (11-34) Troponin I Quantitative < 0.017 ng/mL (0.000-0.055) Total Protein 6.8 g/dL (6.4-8.2) Albumin 3.1 g/dL (3.4-5.0) Albumin/Globulin Ratio 0.8 (1.0-1.7) Thyroid Stimulating Hormone (TSH) 1.277 uIU/mL (0.358-3.74) Ethyl Alcohol Level < 10 mg/dL (0-10) Acetone Level Neg (NEG) Glucose (Fingerstick) 525 mg/dL (70-99) Test 08/31/16 16:11 08/31/16 17:45 08/31/16 18:02 08/31/16 19:08 Glucose (Fingerstick) 383 mg/dL (70-99) 345 mg/dL (70-99) 188 mg/dL (70-99) Nasal Screen MRSA (PCR) Negative (Negative) Test 08/31/16 20:00 08/31/16 20:18 08/31/16 21:19 08/31/16 22:26 White Blood Count 8.6 x10^3/uL (4.0-11.0) Red Blood Count 5.05 x10^6/uL (4.30-5.70) Hemoglobin 14.5 g/dL (13.0-17.5) Hematocrit 41.5 % (39.0-53.0) Mean Corpuscular Volume 82 fL (79-100) Mean Corpuscular Hemoglobin 29 pg (25-35) Mean Corpuscular Hemoglobin Concent 35 g/dL (31-37) Red Cell Distribution Width 13.3 % (11.5-14.5) Platelet Count 232 x10^3/uL (140-400) Neutrophils (%) (Auto) 52 % (31-73) Lymphocytes (%) (Auto) 36 % (24-48) Monocytes (%) (Auto) 8 % (0-9) Eosinophils (%) (Auto) 4 % (0-3) Basophils (%) (Auto) 1 % (0-3) Neutrophils # (Auto) 4.4 x10^3uL (1.8-7.7) Lymphocytes # (Auto) 3.1 x10^3/uL (1.0-4.8) Monocytes # (Auto) 0.7 x10^3/uL (0.0-1.1) Eosinophils # (Auto) 0.3 x10^3/uL (0.0-0.7) Basophils # (Auto) 0.1 x10^3/uL (0.0-0.2) Sodium Level 138 mmol/L (136-145) Potassium Level 3.5 mmol/L (3.5-5.1) Chloride Level 104 mmol/L (98-107) Carbon Dioxide Level 29 mmol/L (21-32) Anion Gap 5 (6-14) Blood Urea Nitrogen 7 mg/dL (8-26) Creatinine 0.9 mg/dL (0.7-1.3) Estimated GFR (Cockcroft-Gault) 90.8 BUN/Creatinine Ratio 8 (6-20) Glucose Level 150 mg/dL (70-99) Calcium Level 9.0 mg/dL (8.5-10.1) Magnesium Level 1.9 mg/dL (1.8-2.4) Total Bilirubin 0.7 mg/dL (0.2-1.0) Aspartate Amino Transf (AST/SGOT) 24 U/L (15-37) Alanine Aminotransferase (ALT/SGPT) 41 U/L (16-63) Alkaline Phosphatase 86 U/L (46-116) Total Protein 6.4 g/dL (6.4-8.2) Albumin 3.0 g/dL (3.4-5.0) Albumin/Globulin Ratio 0.9 (1.0-1.7) Glucose (Fingerstick) 138 mg/dL (70-99) 148 mg/dL (70-99) 141 mg/dL (70-99) Test 08/31/16 23:32 09/01/16 00:34 09/01/16 01:39 09/01/16 02:35 Glucose (Fingerstick) 167 mg/dL (70-99) 141 mg/dL (70-99) 135 mg/dL (70-99) 145 mg/dL (70-99) Test 09/01/16 03:38 09/01/16 04:42 09/01/16 05:30 09/01/16 05:37 Glucose (Fingerstick) 146 mg/dL (70-99) 127 mg/dL (70-99) 129 mg/dL (70-99) White Blood Count 7.0 x10^3/uL (4.0-11.0) Red Blood Count 4.65 x10^6/uL (4.30-5.70) Hemoglobin 13.6 g/dL (13.0-17.5) Hematocrit 37.9 % (39.0-53.0) Mean Corpuscular Volume 82 fL (79-100) Mean Corpuscular Hemoglobin 29 pg (25-35) Mean Corpuscular Hemoglobin Concent 36 g/dL (31-37) Red Cell Distribution Width 13.3 % (11.5-14.5) Platelet Count 214 x10^3/uL (140-400) Neutrophils (%) (Auto) 53 % (31-73) Lymphocytes (%) (Auto) 35 % (24-48) Monocytes (%) (Auto) 7 % (0-9) Eosinophils (%) (Auto) 4 % (0-3) Basophils (%) (Auto) 1 % (0-3) Neutrophils # (Auto) 3.7 x10^3uL (1.8-7.7) Lymphocytes # (Auto) 2.5 x10^3/uL (1.0-4.8) Monocytes # (Auto) 0.5 x10^3/uL (0.0-1.1) Eosinophils # (Auto) 0.3 x10^3/uL (0.0-0.7) Basophils # (Auto) 0.1 x10^3/uL (0.0-0.2) Sodium Level 141 mmol/L (136-145) Potassium Level 3.5 mmol/L (3.5-5.1) Chloride Level 108 mmol/L (98-107) Carbon Dioxide Level 26 mmol/L (21-32) Anion Gap 7 (6-14) Blood Urea Nitrogen 7 mg/dL (8-26) Creatinine 0.9 mg/dL (0.7-1.3) Estimated GFR (Cockcroft-Gault) 90.8 BUN/Creatinine Ratio 8 (6-20) Glucose Level 147 mg/dL (70-99) Calcium Level 8.0 mg/dL (8.5-10.1) Magnesium Level 1.9 mg/dL (1.8-2.4) Total Bilirubin 0.7 mg/dL (0.2-1.0) Aspartate Amino Transf (AST/SGOT) 27 U/L (15-37) Alanine Aminotransferase (ALT/SGPT) 42 U/L (16-63) Alkaline Phosphatase 71 U/L (46-116) Troponin I Quantitative < 0.017 ng/mL (0.000-0.055) Total Protein 5.3 g/dL (6.4-8.2) Albumin 2.7 g/dL (3.4-5.0) Albumin/Globulin Ratio 1.0 (1.0-1.7) Triglycerides Level 216 mg/dL (0-150) Cholesterol Level 118 mg/dL (0-200) LDL Cholesterol, Calculated 51 mg/dL (0-100) VLDL Cholesterol, Calculated 43 mg/dL (0-40) Non-HDL Cholesterol Calculated 94 mg/dL (0-129) HDL Cholesterol 24 mg/dL (40-60) Cholesterol/HDL Ratio 4.9 Test 09/01/16 06:31 09/01/16 07:34 09/01/16 08:32 09/01/16 09:42 Glucose (Fingerstick) 147 mg/dL (70-99) 181 mg/dL (70-99) 168 mg/dL (70-99) 172 mg/dL (70-99) Test 09/01/16 10:47 Glucose (Fingerstick) 169 mg/dL (70-99) Laboratory Tests Test 08/31/16 13:04 08/31/16 13:20 08/31/16 13:50 08/31/16 14:56 O2 Saturation 96 % (92-99) Arterial Blood pH 7.41 (7.35-7.45) Arterial Blood pCO2 at Patient Temp 38 mmHg (35-46) Arterial Blood pO2 at Patient Temp 83 mmHg (75-108) Arterial Blood HCO3 23 mmol/L (21-28) Arterial Blood Base Excess -1 mmol/L (-3-3) FiO2 21.0 Urine Collection Type Unknown Urine Color Yellow Urine Clarity Clear Urine pH 6.5 Urine Specific [place] >=1.030 Urine Protein Negative mg/dL (NEG-TRACE) Urine Glucose (UA) >=1000 mg/dL (NEG) Urine Ketones (Stick) Negative mg/dL (NEG) Urine Blood Negative (NEG) Urine Nitrite Negative (NEG) Urine Bilirubin Negative (NEG) Urine Urobilinogen Dipstick 0.2 mg/dL (0.2 mg/dL) Urine Leukocyte Esterase Negative (NEG) Urine RBC Occ /HPF (0-2) Urine WBC Occ /HPF (0-4) Urine Bacteria 0 /HPF (0-FEW) Urine Opiates Screen Neg (NEG) Urine Methadone Screen Neg (NEG) Urine Barbiturates Neg (NEG) Urine Phencyclidine Screen Neg (NEG) Urine Amphetamine/Methamphetamine Neg (NEG) Urine Benzodiazepines Screen Neg (NEG) Urine Cocaine Screen Neg (NEG) Urine Cannabinoids Screen Neg (NEG) Urine Ethyl Alcohol Neg (NEG) White Blood Count 7.4 x10^3/uL (4.0-11.0) Red Blood Count 5.10 x10^6/uL (4.30-5.70) Hemoglobin 14.7 g/dL (13.0-17.5) Hematocrit 42.8 % (39.0-53.0) Mean Corpuscular Volume 84 fL (79-100) Mean Corpuscular Hemoglobin 29 pg (25-35) Mean Corpuscular Hemoglobin Concent 34 g/dL (31-37) Red Cell Distribution Width 13.4 % (11.5-14.5) Platelet Count 222 x10^3/uL (140-400) Neutrophils (%) (Auto) 64 % (31-73) Lymphocytes (%) (Auto) 25 % (24-48) Monocytes (%) (Auto) 7 % (0-9) Eosinophils (%) (Auto) 3 % (0-3) Basophils (%) (Auto) 1 % (0-3) Neutrophils # (Auto) 4.8 x10^3uL (1.8-7.7) Lymphocytes # (Auto) 1.8 x10^3/uL (1.0-4.8) Monocytes # (Auto) 0.5 x10^3/uL (0.0-1.1) Eosinophils # (Auto) 0.2 x10^3/uL (0.0-0.7) Basophils # (Auto) 0.1 x10^3/uL (0.0-0.2) Sodium Level 129 mmol/L (136-145) Potassium Level 4.0 mmol/L (3.5-5.1) Chloride Level 96 mmol/L (98-107) Carbon Dioxide Level 24 mmol/L (21-32) Anion Gap 9 (6-14) Blood Urea Nitrogen 12 mg/dL (8-26) Creatinine 1.3 mg/dL (0.7-1.3) Estimated GFR (Cockcroft-Gault) 59.4 BUN/Creatinine Ratio 9 (6-20) Glucose Level 681 mg/dL (70-99) Serum Osmolality 304 mOsm/Kg (279-304) Calcium Level 9.4 mg/dL (8.5-10.1) Total Bilirubin 0.6 mg/dL (0.2-1.0) Aspartate Amino Transf (AST/SGOT) 24 U/L (15-37) Alanine Aminotransferase (ALT/SGPT) 47 U/L (16-63) Alkaline Phosphatase 91 U/L (46-116) Ammonia 22 mcmol/L (11-34) Troponin I Quantitative < 0.017 ng/mL (0.000-0.055) Total Protein 6.8 g/dL (6.4-8.2) Albumin 3.1 g/dL (3.4-5.0) Albumin/Globulin Ratio 0.8 (1.0-1.7) Thyroid Stimulating Hormone (TSH) 1.277 uIU/mL (0.358-3.74) Ethyl Alcohol Level < 10 mg/dL (0-10) Acetone Level Neg (NEG) Glucose (Fingerstick) 525 mg/dL (70-99) Test 08/31/16 16:11 08/31/16 17:45 08/31/16 18:02 08/31/16 19:08 Glucose (Fingerstick) 383 mg/dL (70-99) 345 mg/dL (70-99) 188 mg/dL (70-99) Nasal Screen MRSA (PCR) Negative (Negative) Test 08/31/16 20:00 08/31/16 20:18 08/31/16 21:19 08/31/16 22:26 White Blood Count 8.6 x10^3/uL (4.0-11.0) Red Blood Count 5.05 x10^6/uL (4.30-5.70) Hemoglobin 14.5 g/dL (13.0-17.5) Hematocrit 41.5 % (39.0-53.0) Mean Corpuscular Volume 82 fL (79-100) Mean Corpuscular Hemoglobin 29 pg (25-35) Mean Corpuscular Hemoglobin Concent 35 g/dL (31-37) Red Cell Distribution Width 13.3 % (11.5-14.5) Platelet Count 232 x10^3/uL (140-400) Neutrophils (%) (Auto) 52 % (31-73) Lymphocytes (%) (Auto) 36 % (24-48) Monocytes (%) (Auto) 8 % (0-9) Eosinophils (%) (Auto) 4 % (0-3) Basophils (%) (Auto) 1 % (0-3) Neutrophils # (Auto) 4.4 x10^3uL (1.8-7.7) Lymphocytes # (Auto) 3.1 x10^3/uL (1.0-4.8) Monocytes # (Auto) 0.7 x10^3/uL (0.0-1.1) Eosinophils # (Auto) 0.3 x10^3/uL (0.0-0.7) Basophils # (Auto) 0.1 x10^3/uL (0.0-0.2) Sodium Level 138 mmol/L (136-145) Potassium Level 3.5 mmol/L (3.5-5.1) Chloride Level 104 mmol/L (98-107) Carbon Dioxide Level 29 mmol/L (21-32) Anion Gap 5 (6-14) Blood Urea Nitrogen 7 mg/dL (8-26) Creatinine 0.9 mg/dL (0.7-1.3) Estimated GFR (Cockcroft-Gault) 90.8 BUN/Creatinine Ratio 8 (6-20) Glucose Level 150 mg/dL (70-99) Calcium Level 9.0 mg/dL (8.5-10.1) Magnesium Level 1.9 mg/dL (1.8-2.4) Total Bilirubin 0.7 mg/dL (0.2-1.0) Aspartate Amino Transf (AST/SGOT) 24 U/L (15-37) Alanine Aminotransferase (ALT/SGPT) 41 U/L (16-63) Alkaline Phosphatase 86 U/L (46-116) Total Protein 6.4 g/dL (6.4-8.2) Albumin 3.0 g/dL (3.4-5.0) Albumin/Globulin Ratio 0.9 (1.0-1.7) Glucose (Fingerstick) 138 mg/dL (70-99) 148 mg/dL (70-99) 141 mg/dL (70-99) Test 08/31/16 23:32 09/01/16 00:34 09/01/16 01:39 09/01/16 02:35 Glucose (Fingerstick) 167 mg/dL (70-99) 141 mg/dL (70-99) 135 mg/dL (70-99) 145 mg/dL (70-99) Test 09/01/16 03:38 09/01/16 04:42 09/01/16 05:30 09/01/16 05:37 Glucose (Fingerstick) 146 mg/dL (70-99) 127 mg/dL (70-99) 129 mg/dL (70-99) White Blood Count 7.0 x10^3/uL (4.0-11.0) Red Blood Count 4.65 x10^6/uL (4.30-5.70) Hemoglobin 13.6 g/dL (13.0-17.5) Hematocrit 37.9 % (39.0-53.0) Mean Corpuscular Volume 82 fL (79-100) Mean Corpuscular Hemoglobin 29 pg (25-35) Mean Corpuscular Hemoglobin Concent 36 g/dL (31-37) Red Cell Distribution Width 13.3 % (11.5-14.5) Platelet Count 214 x10^3/uL (140-400) Neutrophils (%) (Auto) 53 % (31-73) Lymphocytes (%) (Auto) 35 % (24-48) Monocytes (%) (Auto) 7 % (0-9) Eosinophils (%) (Auto) 4 % (0-3) Basophils (%) (Auto) 1 % (0-3) Neutrophils # (Auto) 3.7 x10^3uL (1.8-7.7) Lymphocytes # (Auto) 2.5 x10^3/uL (1.0-4.8) Monocytes # (Auto) 0.5 x10^3/uL (0.0-1.1) Eosinophils # (Auto) 0.3 x10^3/uL (0.0-0.7) Basophils # (Auto) 0.1 x10^3/uL (0.0-0.2) Sodium Level 141 mmol/L (136-145) Potassium Level 3.5 mmol/L (3.5-5.1) Chloride Level 108 mmol/L (98-107) Carbon Dioxide Level 26 mmol/L (21-32) Anion Gap 7 (6-14) Blood Urea Nitrogen 7 mg/dL (8-26) Creatinine 0.9 mg/dL (0.7-1.3) Estimated GFR (Cockcroft-Gault) 90.8 BUN/Creatinine Ratio 8 (6-20) Glucose Level 147 mg/dL (70-99) Calcium Level 8.0 mg/dL (8.5-10.1) Magnesium Level 1.9 mg/dL (1.8-2.4) Total Bilirubin 0.7 mg/dL (0.2-1.0) Aspartate Amino Transf (AST/SGOT) 27 U/L (15-37) Alanine Aminotransferase (ALT/SGPT) 42 U/L (16-63) Alkaline Phosphatase 71 U/L (46-116) Troponin I Quantitative < 0.017 ng/mL (0.000-0.055) Total Protein 5.3 g/dL (6.4-8.2) Albumin 2.7 g/dL (3.4-5.0) Albumin/Globulin Ratio 1.0 (1.0-1.7) Triglycerides Level 216 mg/dL (0-150) Cholesterol Level 118 mg/dL (0-200) LDL Cholesterol, Calculated 51 mg/dL (0-100) VLDL Cholesterol, Calculated 43 mg/dL (0-40) Non-HDL Cholesterol Calculated 94 mg/dL (0-129) HDL Cholesterol 24 mg/dL (40-60) Cholesterol/HDL Ratio 4.9 Test 09/01/16 06:31 09/01/16 07:34 09/01/16 08:32 09/01/16 09:42 Glucose (Fingerstick) 147 mg/dL (70-99) 181 mg/dL (70-99) 168 mg/dL (70-99) 172 mg/dL (70-99) Test 09/01/16 10:47 Glucose (Fingerstick) 169 mg/dL (70-99) CHAS BOOKER MD Sep 01, 2016 11:46
--- NOTE | 2016-09-01 13:38 | PDOC ---
PROGRESS NOTES Chief Complaint Chief Complaint Confusion/altered mental status likely due to hyperglycemia, CT head and urine drug screen negative for acute findings. Uncontrolled type 2 diabetes mellitus without ketosis Hyponatremia due to hyperglycemia Sever dehydration Morbid obesity BMI of 40.9 Hypertension Hyperlipidemia plan: fu with neuro, brain MRI and EEG pending change IVF to NS 150cc/h, low dose insulin drip talked to ICU nurse, if low dose insulin, may dc and do finger stick q2h with ssi, if still good, then can change to q4h finger stick if alert enough to take po, will do levemir and ssi check hba1c hold most home meds dvt , gi ppx icu care ptot need to talk to family for home meds and compliance History of Present Illness History of Present Illness waking up, knows in the hosp, squeeze my hands, but cannot answer other questions. still lethargic glucose better with low dose insulin, no gap Vitals Vitals Vital Signs Date Time Temp Pulse Resp B/P (MAP) Pulse Ox O2 Delivery O2 Flow Rate FiO2 09/01/16 09:00 63 12 129/79 (96) 98 Room Air 09/01/16 08:00 98.5 98.5 Physical Exam Physical Exam knows in the hosp, squeeze my hands, but cannot answer other questions. General: Alert Heart: Regular rate, Normal S1, Normal S2 Lungs: Clear Abdomen: Normal bowel sounds, Soft Extremities: No clubbing, No cyanosis Labs LABS Laboratory Tests Test 08/31/16 13:50 08/31/16 14:56 08/31/16 16:11 08/31/16 17:45 White Blood Count 7.4 x10^3/uL (4.0-11.0) Red Blood Count 5.10 x10^6/uL (4.30-5.70) Hemoglobin 14.7 g/dL (13.0-17.5) Hematocrit 42.8 % (39.0-53.0) Mean Corpuscular Volume 84 fL (79-100) Mean Corpuscular Hemoglobin 29 pg (25-35) Mean Corpuscular Hemoglobin Concent 34 g/dL (31-37) Red Cell Distribution Width 13.4 % (11.5-14.5) Platelet Count 222 x10^3/uL (140-400) Neutrophils (%) (Auto) 64 % (31-73) Lymphocytes (%) (Auto) 25 % (24-48) Monocytes (%) (Auto) 7 % (0-9) Eosinophils (%) (Auto) 3 % (0-3) Basophils (%) (Auto) 1 % (0-3) Neutrophils # (Auto) 4.8 x10^3uL (1.8-7.7) Lymphocytes # (Auto) 1.8 x10^3/uL (1.0-4.8) Monocytes # (Auto) 0.5 x10^3/uL (0.0-1.1) Eosinophils # (Auto) 0.2 x10^3/uL (0.0-0.7) Basophils # (Auto) 0.1 x10^3/uL (0.0-0.2) Sodium Level 129 mmol/L (136-145) Potassium Level 4.0 mmol/L (3.5-5.1) Chloride Level 96 mmol/L (98-107) Carbon Dioxide Level 24 mmol/L (21-32) Anion Gap 9 (6-14) Blood Urea Nitrogen 12 mg/dL (8-26) Creatinine 1.3 mg/dL (0.7-1.3) Estimated GFR (Cockcroft-Gault) 59.4 BUN/Creatinine Ratio 9 (6-20) Glucose Level 681 mg/dL (70-99) Serum Osmolality 304 mOsm/Kg (279-304) Calcium Level 9.4 mg/dL (8.5-10.1) Total Bilirubin 0.6 mg/dL (0.2-1.0) Aspartate Amino Transf (AST/SGOT) 24 U/L (15-37) Alanine Aminotransferase (ALT/SGPT) 47 U/L (16-63) Alkaline Phosphatase 91 U/L (46-116) Ammonia 22 mcmol/L (11-34) Troponin I Quantitative < 0.017 ng/mL (0.000-0.055) Total Protein 6.8 g/dL (6.4-8.2) Albumin 3.1 g/dL (3.4-5.0) Albumin/Globulin Ratio 0.8 (1.0-1.7) Thyroid Stimulating Hormone (TSH) 1.277 uIU/mL (0.358-3.74) Ethyl Alcohol Level < 10 mg/dL (0-10) Acetone Level Neg (NEG) Glucose (Fingerstick) 525 mg/dL (70-99) 383 mg/dL (70-99) Nasal Screen MRSA (PCR) Negative (Negative) Test 08/31/16 18:02 08/31/16 19:08 08/31/16 20:00 08/31/16 20:18 Glucose (Fingerstick) 345 mg/dL (70-99) 188 mg/dL (70-99) 138 mg/dL (70-99) White Blood Count 8.6 x10^3/uL (4.0-11.0) Red Blood Count 5.05 x10^6/uL (4.30-5.70) Hemoglobin 14.5 g/dL (13.0-17.5) Hematocrit 41.5 % (39.0-53.0) Mean Corpuscular Volume 82 fL (79-100) Mean Corpuscular Hemoglobin 29 pg (25-35) Mean Corpuscular Hemoglobin Concent 35 g/dL (31-37) Red Cell Distribution Width 13.3 % (11.5-14.5) Platelet Count 232 x10^3/uL (140-400) Neutrophils (%) (Auto) 52 % (31-73) Lymphocytes (%) (Auto) 36 % (24-48) Monocytes (%) (Auto) 8 % (0-9) Eosinophils (%) (Auto) 4 % (0-3) Basophils (%) (Auto) 1 % (0-3) Neutrophils # (Auto) 4.4 x10^3uL (1.8-7.7) Lymphocytes # (Auto) 3.1 x10^3/uL (1.0-4.8) Monocytes # (Auto) 0.7 x10^3/uL (0.0-1.1) Eosinophils # (Auto) 0.3 x10^3/uL (0.0-0.7) Basophils # (Auto) 0.1 x10^3/uL (0.0-0.2) Sodium Level 138 mmol/L (136-145) Potassium Level 3.5 mmol/L (3.5-5.1) Chloride Level 104 mmol/L (98-107) Carbon Dioxide Level 29 mmol/L (21-32) Anion Gap 5 (6-14) Blood Urea Nitrogen 7 mg/dL (8-26) Creatinine 0.9 mg/dL (0.7-1.3) Estimated GFR (Cockcroft-Gault) 90.8 BUN/Creatinine Ratio 8 (6-20) Glucose Level 150 mg/dL (70-99) Calcium Level 9.0 mg/dL (8.5-10.1) Magnesium Level 1.9 mg/dL (1.8-2.4) Total Bilirubin 0.7 mg/dL (0.2-1.0) Aspartate Amino Transf (AST/SGOT) 24 U/L (15-37) Alanine Aminotransferase (ALT/SGPT) 41 U/L (16-63) Alkaline Phosphatase 86 U/L (46-116) Total Protein 6.4 g/dL (6.4-8.2) Albumin 3.0 g/dL (3.4-5.0) Albumin/Globulin Ratio 0.9 (1.0-1.7) Test 08/31/16 21:19 08/31/16 22:26 08/31/16 23:32 09/01/16 00:34 Glucose (Fingerstick) 148 mg/dL (70-99) 141 mg/dL (70-99) 167 mg/dL (70-99) 141 mg/dL (70-99) Test 09/01/16 01:39 09/01/16 02:35 09/01/16 03:38 09/01/16 04:42 Glucose (Fingerstick) 135 mg/dL (70-99) 145 mg/dL (70-99) 146 mg/dL (70-99) 127 mg/dL (70-99) Test 09/01/16 05:30 09/01/16 05:37 09/01/16 06:31 09/01/16 07:34 White Blood Count 7.0 x10^3/uL (4.0-11.0) Red Blood Count 4.65 x10^6/uL (4.30-5.70) Hemoglobin 13.6 g/dL (13.0-17.5) Hematocrit 37.9 % (39.0-53.0) Mean Corpuscular Volume 82 fL (79-100) Mean Corpuscular Hemoglobin 29 pg (25-35) Mean Corpuscular Hemoglobin Concent 36 g/dL (31-37) Red Cell Distribution Width 13.3 % (11.5-14.5) Platelet Count 214 x10^3/uL (140-400) Neutrophils (%) (Auto) 53 % (31-73) Lymphocytes (%) (Auto) 35 % (24-48) Monocytes (%) (Auto) 7 % (0-9) Eosinophils (%) (Auto) 4 % (0-3) Basophils (%) (Auto) 1 % (0-3) Neutrophils # (Auto) 3.7 x10^3uL (1.8-7.7) Lymphocytes # (Auto) 2.5 x10^3/uL (1.0-4.8) Monocytes # (Auto) 0.5 x10^3/uL (0.0-1.1) Eosinophils # (Auto) 0.3 x10^3/uL (0.0-0.7) Basophils # (Auto) 0.1 x10^3/uL (0.0-0.2) Sodium Level 141 mmol/L (136-145) Potassium Level 3.5 mmol/L (3.5-5.1) Chloride Level 108 mmol/L (98-107) Carbon Dioxide Level 26 mmol/L (21-32) Anion Gap 7 (6-14) Blood Urea Nitrogen 7 mg/dL (8-26) Creatinine 0.9 mg/dL (0.7-1.3) Estimated GFR (Cockcroft-Gault) 90.8 BUN/Creatinine Ratio 8 (6-20) Glucose Level 147 mg/dL (70-99) Calcium Level 8.0 mg/dL (8.5-10.1) Magnesium Level 1.9 mg/dL (1.8-2.4) Total Bilirubin 0.7 mg/dL (0.2-1.0) Aspartate Amino Transf (AST/SGOT) 27 U/L (15-37) Alanine Aminotransferase (ALT/SGPT) 42 U/L (16-63) Alkaline Phosphatase 71 U/L (46-116) Troponin I Quantitative < 0.017 ng/mL (0.000-0.055) Total Protein 5.3 g/dL (6.4-8.2) Albumin 2.7 g/dL (3.4-5.0) Albumin/Globulin Ratio 1.0 (1.0-1.7) Triglycerides Level 216 mg/dL (0-150) Cholesterol Level 118 mg/dL (0-200) LDL Cholesterol, Calculated 51 mg/dL (0-100) VLDL Cholesterol, Calculated 43 mg/dL (0-40) Non-HDL Cholesterol Calculated 94 mg/dL (0-129) HDL Cholesterol 24 mg/dL (40-60) Cholesterol/HDL Ratio 4.9 Glucose (Fingerstick) 129 mg/dL (70-99) 147 mg/dL (70-99) 181 mg/dL (70-99) Test 09/01/16 08:32 09/01/16 09:42 09/01/16 10:47 09/01/16 12:17 Glucose (Fingerstick) 168 mg/dL (70-99) 172 mg/dL (70-99) 169 mg/dL (70-99) 160 mg/dL (70-99) Review of Systems Review of Systems no fever, chills, sob or chest pain Assessment and Plan Assessmemt and Plan Problems Medical Problems: (1) Altered mental status, unspecified Status: Acute Problems: Comment Review of Relevant I have reviewed the following items sandrine (where applicable) has been applied. Labs Laboratory Tests Test 08/31/16 13:04 08/31/16 13:20 08/31/16 13:50 08/31/16 14:56 O2 Saturation 96 % (92-99) Arterial Blood pH 7.41 (7.35-7.45) Arterial Blood pCO2 at Patient Temp 38 mmHg (35-46) Arterial Blood pO2 at Patient Temp 83 mmHg (75-108) Arterial Blood HCO3 23 mmol/L (21-28) Arterial Blood Base Excess -1 mmol/L (-3-3) FiO2 21.0 Urine Collection Type Unknown Urine Color Yellow Urine Clarity Clear Urine pH 6.5 Urine Specific [place] >=1.030 Urine Protein Negative mg/dL (NEG-TRACE) Urine Glucose (UA) >=1000 mg/dL (NEG) Urine Ketones (Stick) Negative mg/dL (NEG) Urine Blood Negative (NEG) Urine Nitrite Negative (NEG) Urine Bilirubin Negative (NEG) Urine Urobilinogen Dipstick 0.2 mg/dL (0.2 mg/dL) Urine Leukocyte Esterase Negative (NEG) Urine RBC Occ /HPF (0-2) Urine WBC Occ /HPF (0-4) Urine Bacteria 0 /HPF (0-FEW) Urine Opiates Screen Neg (NEG) Urine Methadone Screen Neg (NEG) Urine Barbiturates Neg (NEG) Urine Phencyclidine Screen Neg (NEG) Urine Amphetamine/Methamphetamine Neg (NEG) Urine Benzodiazepines Screen Neg (NEG) Urine Cocaine Screen Neg (NEG) Urine Cannabinoids Screen Neg (NEG) Urine Ethyl Alcohol Neg (NEG) White Blood Count 7.4 x10^3/uL (4.0-11.0) Red Blood Count 5.10 x10^6/uL (4.30-5.70) Hemoglobin 14.7 g/dL (13.0-17.5) Hematocrit 42.8 % (39.0-53.0) Mean Corpuscular Volume 84 fL (79-100) Mean Corpuscular Hemoglobin 29 pg (25-35) Mean Corpuscular Hemoglobin Concent 34 g/dL (31-37) Red Cell Distribution Width 13.4 % (11.5-14.5) Platelet Count 222 x10^3/uL (140-400) Neutrophils (%) (Auto) 64 % (31-73) Lymphocytes (%) (Auto) 25 % (24-48) Monocytes (%) (Auto) 7 % (0-9) Eosinophils (%) (Auto) 3 % (0-3) Basophils (%) (Auto) 1 % (0-3) Neutrophils # (Auto) 4.8 x10^3uL (1.8-7.7) Lymphocytes # (Auto) 1.8 x10^3/uL (1.0-4.8) Monocytes # (Auto) 0.5 x10^3/uL (0.0-1.1) Eosinophils # (Auto) 0.2 x10^3/uL (0.0-0.7) Basophils # (Auto) 0.1 x10^3/uL (0.0-0.2) Sodium Level 129 mmol/L (136-145) Potassium Level 4.0 mmol/L (3.5-5.1) Chloride Level 96 mmol/L (98-107) Carbon Dioxide Level 24 mmol/L (21-32) Anion Gap 9 (6-14) Blood Urea Nitrogen 12 mg/dL (8-26) Creatinine 1.3 mg/dL (0.7-1.3) Estimated GFR (Cockcroft-Gault) 59.4 BUN/Creatinine Ratio 9 (6-20) Glucose Level 681 mg/dL (70-99) Serum Osmolality 304 mOsm/Kg (279-304) Calcium Level 9.4 mg/dL (8.5-10.1) Total Bilirubin 0.6 mg/dL (0.2-1.0) Aspartate Amino Transf (AST/SGOT) 24 U/L (15-37) Alanine Aminotransferase (ALT/SGPT) 47 U/L (16-63) Alkaline Phosphatase 91 U/L (46-116) Ammonia 22 mcmol/L (11-34) Troponin I Quantitative < 0.017 ng/mL (0.000-0.055) Total Protein 6.8 g/dL (6.4-8.2) Albumin 3.1 g/dL (3.4-5.0) Albumin/Globulin Ratio 0.8 (1.0-1.7) Thyroid Stimulating Hormone (TSH) 1.277 uIU/mL (0.358-3.74) Ethyl Alcohol Level < 10 mg/dL (0-10) Acetone Level Neg (NEG) Glucose (Fingerstick) 525 mg/dL (70-99) Test 08/31/16 16:11 08/31/16 17:45 08/31/16 18:02 08/31/16 19:08 Glucose (Fingerstick) 383 mg/dL (70-99) 345 mg/dL (70-99) 188 mg/dL (70-99) Nasal Screen MRSA (PCR) Negative (Negative) Test 08/31/16 20:00 08/31/16 20:18 08/31/16 21:19 08/31/16 22:26 White Blood Count 8.6 x10^3/uL (4.0-11.0) Red Blood Count 5.05 x10^6/uL (4.30-5.70) Hemoglobin 14.5 g/dL (13.0-17.5) Hematocrit 41.5 % (39.0-53.0) Mean Corpuscular Volume 82 fL (79-100) Mean Corpuscular Hemoglobin 29 pg (25-35) Mean Corpuscular Hemoglobin Concent 35 g/dL (31-37) Red Cell Distribution Width 13.3 % (11.5-14.5) Platelet Count 232 x10^3/uL (140-400) Neutrophils (%) (Auto) 52 % (31-73) Lymphocytes (%) (Auto) 36 % (24-48) Monocytes (%) (Auto) 8 % (0-9) Eosinophils (%) (Auto) 4 % (0-3) Basophils (%) (Auto) 1 % (0-3) Neutrophils # (Auto) 4.4 x10^3uL (1.8-7.7) Lymphocytes # (Auto) 3.1 x10^3/uL (1.0-4.8) Monocytes # (Auto) 0.7 x10^3/uL (0.0-1.1) Eosinophils # (Auto) 0.3 x10^3/uL (0.0-0.7) Basophils # (Auto) 0.1 x10^3/uL (0.0-0.2) Sodium Level 138 mmol/L (136-145) Potassium Level 3.5 mmol/L (3.5-5.1) Chloride Level 104 mmol/L (98-107) Carbon Dioxide Level 29 mmol/L (21-32) Anion Gap 5 (6-14) Blood Urea Nitrogen 7 mg/dL (8-26) Creatinine 0.9 mg/dL (0.7-1.3) Estimated GFR (Cockcroft-Gault) 90.8 BUN/Creatinine Ratio 8 (6-20) Glucose Level 150 mg/dL (70-99) Calcium Level 9.0 mg/dL (8.5-10.1) Magnesium Level 1.9 mg/dL (1.8-2.4) Total Bilirubin 0.7 mg/dL (0.2-1.0) Aspartate Amino Transf (AST/SGOT) 24 U/L (15-37) Alanine Aminotransferase (ALT/SGPT) 41 U/L (16-63) Alkaline Phosphatase 86 U/L (46-116) Total Protein 6.4 g/dL (6.4-8.2) Albumin 3.0 g/dL (3.4-5.0) Albumin/Globulin Ratio 0.9 (1.0-1.7) Glucose (Fingerstick) 138 mg/dL (70-99) 148 mg/dL (70-99) 141 mg/dL (70-99) Test 08/31/16 23:32 09/01/16 00:34 09/01/16 01:39 09/01/16 02:35 Glucose (Fingerstick) 167 mg/dL (70-99) 141 mg/dL (70-99) 135 mg/dL (70-99) 145 mg/dL (70-99) Test 09/01/16 03:38 09/01/16 04:42 09/01/16 05:30 09/01/16 05:37 Glucose (Fingerstick) 146 mg/dL (70-99) 127 mg/dL (70-99) 129 mg/dL (70-99) White Blood Count 7.0 x10^3/uL (4.0-11.0) Red Blood Count 4.65 x10^6/uL (4.30-5.70) Hemoglobin 13.6 g/dL (13.0-17.5) Hematocrit 37.9 % (39.0-53.0) Mean Corpuscular Volume 82 fL (79-100) Mean Corpuscular Hemoglobin 29 pg (25-35) Mean Corpuscular Hemoglobin Concent 36 g/dL (31-37) Red Cell Distribution Width 13.3 % (11.5-14.5) Platelet Count 214 x10^3/uL (140-400) Neutrophils (%) (Auto) 53 % (31-73) Lymphocytes (%) (Auto) 35 % (24-48) Monocytes (%) (Auto) 7 % (0-9) Eosinophils (%) (Auto) 4 % (0-3) Basophils (%) (Auto) 1 % (0-3) Neutrophils # (Auto) 3.7 x10^3uL (1.8-7.7) Lymphocytes # (Auto) 2.5 x10^3/uL (1.0-4.8) Monocytes # (Auto) 0.5 x10^3/uL (0.0-1.1) Eosinophils # (Auto) 0.3 x10^3/uL (0.0-0.7) Basophils # (Auto) 0.1 x10^3/uL (0.0-0.2) Sodium Level 141 mmol/L (136-145) Potassium Level 3.5 mmol/L (3.5-5.1) Chloride Level 108 mmol/L (98-107) Carbon Dioxide Level 26 mmol/L (21-32) Anion Gap 7 (6-14) Blood Urea Nitrogen 7 mg/dL (8-26) Creatinine 0.9 mg/dL (0.7-1.3) Estimated GFR (Cockcroft-Gault) 90.8 BUN/Creatinine Ratio 8 (6-20) Glucose Level 147 mg/dL (70-99) Calcium Level 8.0 mg/dL (8.5-10.1) Magnesium Level 1.9 mg/dL (1.8-2.4) Total Bilirubin 0.7 mg/dL (0.2-1.0) Aspartate Amino Transf (AST/SGOT) 27 U/L (15-37) Alanine Aminotransferase (ALT/SGPT) 42 U/L (16-63) Alkaline Phosphatase 71 U/L (46-116) Troponin I Quantitative < 0.017 ng/mL (0.000-0.055) Total Protein 5.3 g/dL (6.4-8.2) Albumin 2.7 g/dL (3.4-5.0) Albumin/Globulin Ratio 1.0 (1.0-1.7) Triglycerides Level 216 mg/dL (0-150) Cholesterol Level 118 mg/dL (0-200) LDL Cholesterol, Calculated 51 mg/dL (0-100) VLDL Cholesterol, Calculated 43 mg/dL (0-40) Non-HDL Cholesterol Calculated 94 mg/dL (0-129) HDL Cholesterol 24 mg/dL (40-60) Cholesterol/HDL Ratio 4.9 Test 09/01/16 06:31 09/01/16 07:34 09/01/16 08:32 09/01/16 09:42 Glucose (Fingerstick) 147 mg/dL (70-99) 181 mg/dL (70-99) 168 mg/dL (70-99) 172 mg/dL (70-99) Test 09/01/16 10:47 09/01/16 12:17 Glucose (Fingerstick) 169 mg/dL (70-99) 160 mg/dL (70-99) Laboratory Tests Test 08/31/16 13:50 08/31/16 14:56 08/31/16 16:11 08/31/16 17:45 White Blood Count 7.4 x10^3/uL (4.0-11.0) Red Blood Count 5.10 x10^6/uL (4.30-5.70) Hemoglobin 14.7 g/dL (13.0-17.5) Hematocrit 42.8 % (39.0-53.0) Mean Corpuscular Volume 84 fL (79-100) Mean Corpuscular Hemoglobin 29 pg (25-35) Mean Corpuscular Hemoglobin Concent 34 g/dL (31-37) Red Cell Distribution Width 13.4 % (11.5-14.5) Platelet Count 222 x10^3/uL (140-400) Neutrophils (%) (Auto) 64 % (31-73) Lymphocytes (%) (Auto) 25 % (24-48) Monocytes (%) (Auto) 7 % (0-9) Eosinophils (%) (Auto) 3 % (0-3) Basophils (%) (Auto) 1 % (0-3) Neutrophils # (Auto) 4.8 x10^3uL (1.8-7.7) Lymphocytes # (Auto) 1.8 x10^3/uL (1.0-4.8) Monocytes # (Auto) 0.5 x10^3/uL (0.0-1.1) Eosinophils # (Auto) 0.2 x10^3/uL (0.0-0.7) Basophils # (Auto) 0.1 x10^3/uL (0.0-0.2) Sodium Level 129 mmol/L (136-145) Potassium Level 4.0 mmol/L (3.5-5.1) Chloride Level 96 mmol/L (98-107) Carbon Dioxide Level 24 mmol/L (21-32) Anion Gap 9 (6-14) Blood Urea Nitrogen 12 mg/dL (8-26) Creatinine 1.3 mg/dL (0.7-1.3) Estimated GFR (Cockcroft-Gault) 59.4 BUN/Creatinine Ratio 9 (6-20) Glucose Level 681 mg/dL (70-99) Serum Osmolality 304 mOsm/Kg (279-304) Calcium Level 9.4 mg/dL (8.5-10.1) Total Bilirubin 0.6 mg/dL (0.2-1.0) Aspartate Amino Transf (AST/SGOT) 24 U/L (15-37) Alanine Aminotransferase (ALT/SGPT) 47 U/L (16-63) Alkaline Phosphatase 91 U/L (46-116) Ammonia 22 mcmol/L (11-34) Troponin I Quantitative < 0.017 ng/mL (0.000-0.055) Total Protein 6.8 g/dL (6.4-8.2) Albumin 3.1 g/dL (3.4-5.0) Albumin/Globulin Ratio 0.8 (1.0-1.7) Thyroid Stimulating Hormone (TSH) 1.277 uIU/mL (0.358-3.74) Ethyl Alcohol Level < 10 mg/dL (0-10) Acetone Level Neg (NEG) Glucose (Fingerstick) 525 mg/dL (70-99) 383 mg/dL (70-99) Nasal Screen MRSA (PCR) Negative (Negative) Test 08/31/16 18:02 08/31/16 19:08 08/31/16 20:00 08/31/16 20:18 Glucose (Fingerstick) 345 mg/dL (70-99) 188 mg/dL (70-99) 138 mg/dL (70-99) White Blood Count 8.6 x10^3/uL (4.0-11.0) Red Blood Count 5.05 x10^6/uL (4.30-5.70) Hemoglobin 14.5 g/dL (13.0-17.5) Hematocrit 41.5 % (39.0-53.0) Mean Corpuscular Volume 82 fL (79-100) Mean Corpuscular Hemoglobin 29 pg (25-35) Mean Corpuscular Hemoglobin Concent 35 g/dL (31-37) Red Cell Distribution Width 13.3 % (11.5-14.5) Platelet Count 232 x10^3/uL (140-400) Neutrophils (%) (Auto) 52 % (31-73) Lymphocytes (%) (Auto) 36 % (24-48) Monocytes (%) (Auto) 8 % (0-9) Eosinophils (%) (Auto) 4 % (0-3) Basophils (%) (Auto) 1 % (0-3) Neutrophils # (Auto) 4.4 x10^3uL (1.8-7.7) Lymphocytes # (Auto) 3.1 x10^3/uL (1.0-4.8) Monocytes # (Auto) 0.7 x10^3/uL (0.0-1.1) Eosinophils # (Auto) 0.3 x10^3/uL (0.0-0.7) Basophils # (Auto) 0.1 x10^3/uL (0.0-0.2) Sodium Level 138 mmol/L (136-145) Potassium Level 3.5 mmol/L (3.5-5.1) Chloride Level 104 mmol/L (98-107) Carbon Dioxide Level 29 mmol/L (21-32) Anion Gap 5 (6-14) Blood Urea Nitrogen 7 mg/dL (8-26) Creatinine 0.9 mg/dL (0.7-1.3) Estimated GFR (Cockcroft-Gault) 90.8 BUN/Creatinine Ratio 8 (6-20) Glucose Level 150 mg/dL (70-99) Calcium Level 9.0 mg/dL (8.5-10.1) Magnesium Level 1.9 mg/dL (1.8-2.4) Total Bilirubin 0.7 mg/dL (0.2-1.0) Aspartate Amino Transf (AST/SGOT) 24 U/L (15-37) Alanine Aminotransferase (ALT/SGPT) 41 U/L (16-63) Alkaline Phosphatase 86 U/L (46-116) Total Protein 6.4 g/dL (6.4-8.2) Albumin 3.0 g/dL (3.4-5.0) Albumin/Globulin Ratio 0.9 (1.0-1.7) Test 08/31/16 21:19 08/31/16 22:26 08/31/16 23:32 09/01/16 00:34 Glucose (Fingerstick) 148 mg/dL (70-99) 141 mg/dL (70-99) 167 mg/dL (70-99) 141 mg/dL (70-99) Test 09/01/16 01:39 09/01/16 02:35 09/01/16 03:38 09/01/16 04:42 Glucose (Fingerstick) 135 mg/dL (70-99) 145 mg/dL (70-99) 146 mg/dL (70-99) 127 mg/dL (70-99) Test 09/01/16 05:30 09/01/16 05:37 09/01/16 06:31 09/01/16 07:34 White Blood Count 7.0 x10^3/uL (4.0-11.0) Red Blood Count 4.65 x10^6/uL (4.30-5.70) Hemoglobin 13.6 g/dL (13.0-17.5) Hematocrit 37.9 % (39.0-53.0) Mean Corpuscular Volume 82 fL (79-100) Mean Corpuscular Hemoglobin 29 pg (25-35) Mean Corpuscular Hemoglobin Concent 36 g/dL (31-37) Red Cell Distribution Width 13.3 % (11.5-14.5) Platelet Count 214 x10^3/uL (140-400) Neutrophils (%) (Auto) 53 % (31-73) Lymphocytes (%) (Auto) 35 % (24-48) Monocytes (%) (Auto) 7 % (0-9) Eosinophils (%) (Auto) 4 % (0-3) Basophils (%) (Auto) 1 % (0-3) Neutrophils # (Auto) 3.7 x10^3uL (1.8-7.7) Lymphocytes # (Auto) 2.5 x10^3/uL (1.0-4.8) Monocytes # (Auto) 0.5 x10^3/uL (0.0-1.1) Eosinophils # (Auto) 0.3 x10^3/uL (0.0-0.7) Basophils # (Auto) 0.1 x10^3/uL (0.0-0.2) Sodium Level 141 mmol/L (136-145) Potassium Level 3.5 mmol/L (3.5-5.1) Chloride Level 108 mmol/L (98-107) Carbon Dioxide Level 26 mmol/L (21-32) Anion Gap 7 (6-14) Blood Urea Nitrogen 7 mg/dL (8-26) Creatinine 0.9 mg/dL (0.7-1.3) Estimated GFR (Cockcroft-Gault) 90.8 BUN/Creatinine Ratio 8 (6-20) Glucose Level 147 mg/dL (70-99) Calcium Level 8.0 mg/dL (8.5-10.1) Magnesium Level 1.9 mg/dL (1.8-2.4) Total Bilirubin 0.7 mg/dL (0.2-1.0) Aspartate Amino Transf (AST/SGOT) 27 U/L (15-37) Alanine Aminotransferase (ALT/SGPT) 42 U/L (16-63) Alkaline Phosphatase 71 U/L (46-116) Troponin I Quantitative < 0.017 ng/mL (0.000-0.055) Total Protein 5.3 g/dL (6.4-8.2) Albumin 2.7 g/dL (3.4-5.0) Albumin/Globulin Ratio 1.0 (1.0-1.7) Triglycerides Level 216 mg/dL (0-150) Cholesterol Level 118 mg/dL (0-200) LDL Cholesterol, Calculated 51 mg/dL (0-100) VLDL Cholesterol, Calculated 43 mg/dL (0-40) Non-HDL Cholesterol Calculated 94 mg/dL (0-129) HDL Cholesterol 24 mg/dL (40-60) Cholesterol/HDL Ratio 4.9 Glucose (Fingerstick) 129 mg/dL (70-99) 147 mg/dL (70-99) 181 mg/dL (70-99) Test 09/01/16 08:32 09/01/16 09:42 09/01/16 10:47 09/01/16 12:17 Glucose (Fingerstick) 168 mg/dL (70-99) 172 mg/dL (70-99) 169 mg/dL (70-99) 160 mg/dL (70-99) Test 09/01/16 13:29 Glucose (Fingerstick) 162 mg/dL (70-99) Medications Current Medications Sodium Chloride 1,000 ml @ 1,000 mls/hr 1X ONCE IV Last administered on 13:59; Start 08/31/16 at 13:15; Stop 08/31/16 at 14:14; Status DC Sodium Chloride 1,000 ml @ 1,000 mls/hr 1X ONCE IV Last administered on 13:59; Start 08/31/16 at 13:15; Stop 08/31/16 at 14:14; Status DC Insulin Human Regular (NovoLIN R VIAL) 14 unit 1X ONCE SQ Last administered on 08/31/16 13:58; Start 08/31/16 at 13:15; Stop 08/31/16 at 13:16; Status DC Acetaminophen (Tylenol) 650 mg 1X ONCE PO Last administered on 08/31/16 14:56 ; Start 08/31/16 at 15:00; Stop 08/31/16 at 15:01; Status DC Insulin Human Regular 150 unit/ Sodium Chloride 151.5 ml @ 0 mls/hr CONT PRN IV SEE I/O RECORD; Start 08/31/16 at 15:30 Insulin Human Regular 150 ml @ 0 mls/hr 1X ONCE IV Last administered on 17:26; Start 08/31/16 at 15:30; Stop 08/31/16 at 15:31; Status DC Sodium Chloride 1,000 ml @ 200 mls/hr 1X ONCE IV ; Start 08/31/16 at 15:30; Stop 08/31/16 at 17:24; Status DC Sodium Chloride 1,000 ml @ 150 mls/hr [id number] IV Last administered on 12:38; Start 08/31/16 at 17:00; Stop 09/01/16 at 16:59 Sodium Chloride 1,000 ml @ 1,000 mls/hr 1X ONCE IV Last administered on 17:28; Start 08/31/16 at 17:30; Stop 08/31/16 at 18:29; Status DC Potassium Chloride 100 ml @ 100 mls/hr Q1H IV Last administered on 08/31/16 22:18; Start 08/31/16 at 21:00; Stop 08/31/16 at 22:59; Status DC Aspirin (Aspirin) 300 mg 1X ONCE [place] Last administered on 08/31/16 21:35; Start 08/31/16 at 21:15; Stop 08/31/16 at 21:16; Status DC Potassium Chloride 100 ml @ 100 mls/hr Q1H IV Last administered on 09/01/16 08:22; Start 09/01/16 at 06:30; Stop 09/01/16 at 08:29; Status DC Active Scripts Active Zofran (Ondansetron Hcl) 4 Mg Tablet 4 Mg PO BID PRN Tessalon Perle (Benzonatate) 100 Mg Capsule 100 Mg PO TID PRN Levemir Flextouch (Insulin Detemir) 100 Unit/1 Ml Insuln.pen 120 Units SQ BID 30 Days Novolog Flexpen (Insulin Aspart) 100 Unit/1 Ml Insuln.pen 60 Units SQ TIDAC 30 Days Reported Lisinopril 5 Mg Tablet 1 Tab PO DAILY [Atorvastatin] 25 Mg PO DAILY Gabapentin 100 Mg Capsule 1,000 Mg PO TID Metformin Hcl 500 Mg Tablet 2 Tab PO HS Metformin Hcl 500 Mg Tablet 2 Tab PO DAILY08 Nystatin 15 Gm Powder 1 Martha TP BID Vitals/I & O Vital Sign - Last 24 Hours 08/31/16 08/31/16 08/31/16 08/31/16 13:35 14:00 14:30 15:00 Pulse 72 66 80 Resp 16 19 18 B/P (MAP) 162/89 (113) 183/111 (135) 159/90 (113) Pulse Ox 98 100 98 O2 Delivery Room Air 08/31/16 08/31/16 08/31/16 08/31/16 15:30 16:00 16:30 17:09 Temp 97.7 97.7 Pulse 68 70 66 64 Resp 15 16 26 12 B/P (MAP) 147/76 (99) 151/86 (107) 135/83 (100) 169/105 (126) Pulse Ox 98 99 99 99 O2 Delivery Room Air 08/31/16 08/31/16 08/31/16 08/31/16 17:10 17:13 18:00 19:00 Temp 97.7 97.7 Pulse 68 60 61 Resp 20 20 16 B/P (MAP) 150/104 (119) 150/87 (108) 157/76 (103) Pulse Ox 100 99 99 O2 Delivery Room Air Room Air Room Air Room Air 08/31/16 08/31/16 08/31/16 08/31/16 20:00 20:00 21:00 22:00 Temp 98.5 98.5 Pulse 63 68 69 Resp 16 15 15 B/P (MAP) 141/56 (84) 155/99 (117) 155/98 (117) Pulse Ox 97 100 98 O2 Delivery Room Air Room Air Room Air Room Air 08/31/16 09/01/16 09/01/16 09/01/16 23:00 00:00 00:00 01:00 Temp 98.4 98.4 Pulse 65 71 81 Resp 13 13 20 B/P (MAP) 137/73 (94) 156/94 (114) 146/86 (106) Pulse Ox 95 97 98 O2 Delivery Room Air Room Air Room Air Room Air 09/01/16 09/01/16 09/01/16 09/01/16 02:00 03:00 04:00 04:00 Temp 98.0 98.0 Pulse 59 66 61 Resp 16 16 12 B/P (MAP) 144/90 (108) 135/83 (100) 128/66 (86) Pulse Ox 96 97 97 O2 Delivery Room Air Room Air Room Air Room Air 09/01/16 09/01/16 09/01/16 09/01/16 05:00 06:00 07:00 08:00 Temp 98.5 98.5 Pulse 61 62 62 63 Resp 11 12 12 14 B/P (MAP) 135/84 (101) 124/68 (86) 111/61 (78) 119/77 (91) Pulse Ox 98 98 96 97 O2 Delivery Room Air Room Air Room Air Room Air 09/01/16 09/01/16 08:00 09:00 Pulse 63 Resp 12 B/P (MAP) 129/79 (96) Pulse Ox 98 O2 Delivery Room Air Room Air Intake and Output 08/31/16 08/31/16 09/01/16 15:00 23:00 07:00 Intake Total 2100 ml 3607 ml Output Total 700 ml 1425 ml Balance 1400 ml 2182 ml ELISEO WALTERS MD Sep 01, 2016 13:38
[2016-09-01] MEDS ORDERED: traMADol 50 MG TABLET PO PRN (13:45)
[2016-09-01] MEDS ORDERED: DOCUSATE SODIUM 100 MG CAPSULE. PO PRN (13:45)
[2016-09-01] MEDS ORDERED: hydrALAZINE 20 MG/ML VIAL. IVP PRN (13:45)
[2016-09-01] MEDS ORDERED: ACETAMINOPHEN 325 MG TABLET. PO PRN (13:45)
[2016-09-01] MEDS ORDERED: MORPHINE SULFATE 2 MG/ML DISP.SYRIN. IV PRN (13:45)
[2016-09-01] MEDS ORDERED: ONDANSETRON PF 4 MG/2 ML VIAL. IV PRN (13:45)
[2016-09-01] MEDS: ENOXAPARIN 40 MG/0.4 ML SYRINGE. SQ SCH ×2 (14:28→20:42)
[2016-09-01] MEDS ORDERED: DEXTROSE 50% 25 GM / 50ML DISP.SYRIN. IV PRN (15:00)
--- NOTE | 2016-09-01 15:28 | RAD ---
MRI of the brain without contrast 09/01/2016 Clinical History: Altered mental status and speech difficulties. Technique: Unenhanced T1-weighted sagittal and axial, T2-weighted axial and coronal and FLAIR, gradient echo and diffusion-weighted axial images of the brain were obtained. Findings: Comparison study is dated 10/30/2015. The ventricles and sulci are within normal limits in size and configuration. No area of abnormal signal intensity is seen involving brain parenchyma. No extra-axial fluid collection is seen. There is no MRI evidence of acute ischemia/infarction. Mild mucosal thickening in seen scattered throughout the paranasal sinuses. There are minimal bilateral mastoid effusions. Normal flow voids are seen within the major vascular structures surrounding the brain parenchyma. Impression: 1. Negative MRI of the brain. 2. Mild paranasal sinus and mastoid disease. Electronically signed by: Narendra Mariano MD (09/01/2016 3:25 PM) [id number]
[2016-09-01] MEDS: INSULIN DETEMIR 300 UNITS/3 ML INSULN.PEN. SQ SCH (15:49)
[2016-09-01] MEDS: INSULIN ASPART 300 UNITS/3 ML INSULN.PEN SQ SCH ×3 (17:00→20:43)
[2016-09-01] MEDS ORDERED: IV NORMAL SALINE 1000ML BAG 1,000 ML IV SCH (18:00)
[2016-09-01] MEDS ORDERED: FAMOTIDINE 20 MG/2 ML VIAL IVP SCH (21:00)
[2016-09-01] MEDS ORDERED: ATORVASTATIN CALCIUM 20 MG TABLET PO SCH (21:00)
[2016-09-02] VITALS (10 sets, daily range): BP systolic 97–163; BP diastolic 50–95
[2016-09-02 05:43] LABS: CALCIUM 8.4 mg/dL (8.5-10.1); CREATININE 0.8 mg/dL (0.7-1.3); GFR 104.1; POTASSIUM 3.5 mmol/L (3.5-5.1)
[2016-09-02 06:11] LABS: BASO # 0.1 x10^3/uL (0.0-0.2); BASO % 1 % (0-3); EOS % 4 % (0-3); HEMATOCRIT 41.7 % (39.0-53.0); HEMOGLOBIN 14.2 g/dL (13.0-17.5); LYMPH # 2.7 x10^3/uL (1.0-4.8); LYMPH % 38 % (24-48); MEAN CORPUSCULAR HEMOGLOBIN 29 pg (25-35); MEAN CORPUSCULAR HGB CONC 34 g/dL (31-37); MEAN CORPUSCULAR VOLUME 84 fL (79-100); MONO % 7 % (0-9); NEUT % 50 % (31-73); PLATELET COUNT 235 x10^3/uL (140-400); RED BLOOD COUNT 4.98 x10^6/uL (4.30-5.70); RED CELL DISTRIBUTION WIDTH 13.1 % (11.5-14.5); WHITE BLOOD COUNT 7.1 x10^3/uL (4.0-11.0)
[2016-09-02] MEDS: ENOXAPARIN 40 MG/0.4 ML SYRINGE. SQ SCH (08:40)
[2016-09-02] MEDS: INSULIN DETEMIR 300 UNITS/3 ML INSULN.PEN. SQ SCH (08:40)
[2016-09-02] MEDS: INSULIN ASPART 300 UNITS/3 ML INSULN.PEN SQ SCH ×4 (08:41→12:41)
[2016-09-02] MEDS ORDERED: INSU100I17 SQ (09:38)
[2016-09-02] MEDS ORDERED: INSU100I27 SQ (09:38)
--- NOTE | 2016-09-02 13:47 | PDOC3 ---
Discharge Summary [facility] Date of Admission: Aug 31, 2016 Discharge Date: Sep 02, 2016 Admitting Diagnosis Confusion/altered mental status likely due to hyperglycemia, HHS, no DKA CT head and urine drug screen negative for acute findings. Uncontrolled type 2 diabetes mellitus without ketosis Hyponatremia due to hyperglycemia Sever dehydration Morbid obesity BMI of 40.9 Hypertension Hyperlipidemia Problems: Final Diagnosis CONSULTS NEURO Procedures NEG MRI, EEG Brief Hospital Course 46yo M, dm2 on high dose insulin at home as per pt, 60u lantus bid, 60u aspart tid, came for syncope, confusion, likely 2/2 metabolic encephalopathy with GLucose >600, no DKA. PT has been on insulin drip for 1 day, no gap. wake up well last night dc home. MRI, EEG all neg dc time 35min Physical Exam General: Alert Heart: Regular rate, Normal S1, Normal S2 Lungs: Clear Abdomen: Normal bowel sounds, Soft Extremities: No clubbing, No cyanosis Patient History: FH: stomach ulcer Family history: Cardiovascular disease (situation) 33 FATHER Family history: Diabetes mellitus (situation) 33 FATHER Problems: Disposition home CONDITION AT DISCHARGE: Improved Diet ada Scheduled Gabapentin (Gabapentin), 1,000 MG PO TID, (Reported) Insulin Aspart (Novolog Flexpen), 60 UNITS SQ TIDAC Insulin Detemir (Levemir Flextouch), 60 UNITS SQ BID Lisinopril (Lisinopril), 1 TAB PO DAILY, (Reported) Metformin Hcl (Metformin Hcl), 2 TAB PO DAILY08, (Reported) Metformin Hcl (Metformin Hcl), 2 TAB PO HS, (Reported) Nystatin (Nystatin), 1 MARIA DOLORES TP BID, (Reported) [Atorvastatin], 25 MG PO DAILY, (Reported) Scheduled PRN Benzonatate (Tessalon Perle), 100 MG PO TID PRN for COUGH Ondansetron Hcl (Zofran), 4 MG PO BID PRN for NAUSEA/VOMITING ELISEO WALTERS MD Sep 02, 2016 13:47
== END 2016-09-02 13:49 | disposition home or self-care (01) | DRG 637 ==
LOC: ER 12:57 → 1 WEST ICU 15:10
PROVIDERS: ADMIT Internal Medicine; ATTEND Internal Medicine
DX: E11.65 Type 2 diabetes mellitus with hyperglycemia (principal); G93.41 Metabolic encephalopathy; Z68.41 Body mass index [BMI] 40.0-44.9, adult; E87.1 Hypo-osmolality and hyponatremia; E66.01 Morbid (severe) obesity due to excess calories; E78.5 Hyperlipidemia, unspecified; E86.0 Dehydration; E11.42 Type 2 diabetes mellitus with diabetic polyneuropathy; R55 Syncope and collapse; I10 Essential (primary) hypertension; Z79.4 Long term (current) use of insulin; Z79.82 Long term (current) use of aspirin; Z82.49 Family history of ischemic heart disease and other diseases of the circulatory system; Z83.3 Family history of diabetes mellitus; Z85.528 Personal history of other malignant neoplasm of kidney; Z90.49 Acquired absence of other specified parts of digestive tract; Z90.5 Acquired absence of kidney; Z72.89 Other problems related to lifestyle; Z91.041 Radiographic dye allergy status
CPT/HCPCS: 36415; 36600; 70450; 70551; 80048; 80053; 80061; 81001; 82010; 82140; 82805; 82962; 83735; 83930; 84443; 84484; 85027; 87641; 93005; 95816; 96360; 96361; 96372; A6539; G0480; G0481; J1650; J1815; J3480; J7030; S0028; 99285-25